=== PATIENT | female | born 1970 | race American Indian/Alaskan Native ===

== ENCOUNTER 2017-05-18 23:19 | Emergency (ER) | payer MEDICAID, OTHER ==
[2017-05-18 23:48] VITALS: BMI 23.4
[2017-05-18] MEDS ORDERED: Sodium Chloride 0.9% 1,000 ML IV STA (23:49)
[2017-05-18 23:58] VITALS: RESP 18; TEMP 98.1
[2017-05-19] LABS: URINE BILIRUBIN SMALL (NEGATIVE); URINE BLOOD LARGE (NEGATIVE); URINE GLUCOSE (UA) NEGATIVE (NEGATIVE); URINE KETONE TRACE mg/dL (NEGATIVE); URINE LEUKOCYTE ESTERASE TRACE Leu/uL (NEGATIVE); URINE PROTEIN 30 mg/dL (<30 mg/dL)
[2017-05-19 00:01] LABS: URINE APPEARANCE CLOUDY (CLEAR); URINE COLOR YELLOW (YELLOW)
--- NOTE | 2017-05-19 00:05 | ED PDOC ---
Arrival/HPI <KenneyTaye - Last Filed: 05/19/17 00:54> - General Historian: Patient <enriqueTaran Tamika - Last Filed: 05/19/17 01:08> - General Chief Complaint: Abdominal Pain Time Seen by Provider: 05/18/17 23:32 - History of Present Illness Narrative History of Present Illness (Text): 05/19/17 00:02 46yo female with no PMhx present with complaint of intermittent epigastric pain x 2weeks. Notes she had similar symptoms few a years and was diagnosed with gallstones. She denies nausea, vomiting, diarrhea, constipation, fever, chills, chest pain, SOB, diaphoresis, any other complaint. (Taran Crawley A) Past Medical History - Provider Review Nursing Documentation Reviewed: Yes - Gastrointestinal Hx Gall Bladder Disease: Yes - Psychiatric Hx Substance Use: Yes <Taran Crawley Tamika - Last Filed: 05/19/17 01:08> Family/Social History - Physician Review Nursing Documentation Reviewed: Yes Family/Social History: Unknown Family HX Smoking Status: Heavy Smoker > 10 Cigarettes Daily Hx Alcohol Use: No Hx Substance Use: Yes Substance used: Snorts Heroin Smokes Cocaine <enriqueTaran A - Last Filed: 05/19/17 01:08> Allergies/Home Meds <Kenney,Taye - Last Filed: 05/19/17 00:54> <Taran Crawley A - Last Filed: 05/19/17 01:08> Allergies/Adverse Reactions: Allergies No Known Allergies Allergy (Verified 05/18/17 23:48) Review of Systems - Physician Review All systems were reviewed & negative as marked: Yes - Review of Systems Constitutional: Normal Eyes: Normal ENT: Normal Respiratory: Normal Cardiovascular: Normal Gastrointestinal: Abdominal Pain. absent: Constipation, Diarrhea, Nausea, Vomiting, Hematochezia, Hematemesis Genitourinary Female: Normal Musculoskeletal: Normal Skin: Normal Neurological: Normal Endocrine: Normal Hemo/Lymphatic: Normal Psychiatric: Normal <Taran Crawley Tamika - Last Filed: 05/19/17 01:08> Physical Exam Vital Signs Reviewed: Yes Temperature: Afebrile Blood Pressure: Normal Pulse: Regular Respiratory Rate: Normal Appearance: Positive for: Well-Appearing, Non-Toxic, Comfortable Pain Distress: None Mental Status: Positive for: Alert and Oriented X 3 - Systems Exam Head: Present: Atraumatic, Normocephalic Pupils: Present: PERRL Extroacular Muscles: Present: EOMI Conjunctiva: Present: Normal Mouth: Present: Moist Mucous Membranes Neck: Present: Normal Range of Motion Respiratory/Chest: Present: Clear to Auscultation, Good Air Exchange. No: Respiratory Distress, Accessory Muscle Use Cardiovascular: Present: Regular Rate and Rhythm, Normal S1, S2. No: Murmurs Abdomen: Present: Tenderness (Epigastric tenderness), Normal Bowel Sounds, Other (soft). No: Distention, Peritoneal Signs, Rebound, Guarding, McBurney's Point Tender, Rovsing's Sign Present Back: Present: Normal Inspection Upper Extremity: Present: Normal Inspection. No: Cyanosis, Edema Lower Extremity: Present: Normal Inspection. No: Edema Neurological: Present: GCS=15, CN II-XII Intact, Speech Normal Skin: Present: Warm, Dry, Normal Color. No: Rashes Psychiatric: Present: Alert, Oriented x 3, Normal Insight, Normal Concentration <Taran Crawley A - Last Filed: 05/19/17 01:08> Vital Signs Temp Pulse Resp BP Pulse Ox 05/18/17 23:53 98.1 F 65 18 165/96 H 100 Medical Decision Making <Taye Moulton - Last Filed: 05/19/17 00:54> <Taran Crawley - Last Filed: 05/19/17 01:08> ED Course and Treatment: 05/19/17 01:03 PT in ED for stated history. She had epigastric pain and expressed history of gallstones. Her pain was controlled in ED with medication and she was hydrated. Large blood was noted in her UA and on further evaluation she stated that she is currently having her monthly period. Lab was unremarkable Gallblader/Kidney US IMPRESSION: Contracted gallbladder with gallstone. Gallbladder wall thickness measured at 4 mm, but gallbladder is contracted. Reported positive sonographic Farley's sign. Acute cholecystitis is a consideration. Nuclear hepatobiliary scan can aid in evaluation. Thank you for allowing us to participate in the care of your patient. Pt have no leukocytosis and no farley's sign on PE, this makes diagnosis of cholecytitis difficult. She will be DC home with Tramadol and pepcid and referred the clinic/surgeon. TRT ED for any new or worsening symptoms. (Diru, Happiness A) - Lab Interpretations Lab Results: 05/19/17 00:10 05/19/17 00:10 Lab Results 05/19/17 00:10: Sodium 140, Potassium 3.8, Chloride 106, Carbon Dioxide 29, Anion Gap 10, BUN 10, Creatinine 0.7, Est GFR ( Amer) > 60, Est GFR (Non- Af Amer) > 60, Random Glucose 91, Calcium 8.9, Total Bilirubin 0.4, AST 27, ALT 19, Alkaline Phosphatase 61, Total Protein 6.9, Albumin 3.5, Globulin 3.4, Albumin/Globulin Ratio 1.0 L, Lipase 71 05/19/17 00:10: PT 11.1, INR 1.02, APTT 29.7 05/19/17 00:10: WBC 9.5, RBC 4.16, Hgb 11.2 L, Hct 34.7 L, MCV 83.4, MCH 26.9, MCHC 32.3, RDW 14.9 H, Plt Count 260, MPV 11.3 H, Gran % 52.5, Lymph % (Auto) 38.0 H, [place] % (Auto) 7.2 H, Eos % (Auto) 1.9, Baso % (Auto) 0.4, Gran # 5.00, Lymph # 3.6 H, [place] # 0.7 H, Eos # 0.2, Baso # 0.04 05/18/17 23:50: Urine Color Yellow, Urine Appearance Cloudy, Urine pH 6.0, Ur Specific [place] >= 1.030, Urine Protein 30 H, Urine Glucose (UA) Negative, Urine Ketones Trace H, Urine Blood Large H, Urine Nitrate Negative, Urine Bilirubin Small H, Urine Urobilinogen 1.0 H, Ur Leukocyte Esterase Trace H, Urine RBC Tntc, Urine WBC 2 - 5, Ur Epithelial Cells 3 - 4, Urine Bacteria Few - RAD Interpretation Radiology Orders: 05/18/17 23:51 GALLBLADDER & RENAL [US] Stat - Medication Orders Current Medication Orders: Discontinued Medications Famotidine (Pepcid) 20 mg IVP STAT STA Stop: 05/18/17 23:50 Last Admin: 05/19/17 00:43 Dose: 20 mg IVP Administration Document 05/19/17 00:43 EQ (Rec: 05/19/17 00:43 EQ [id number]) Charges for Administration # of IVP Administrations 1 Sodium Chloride (Sodium Chloride 0.9%) 1,000 mls @ 1,000 mls/hr IV .Q1H STA Stop: 05/19/17 00:48 Last Admin: 05/19/17 00:43 Dose: 1,000 mls/hr eMAR Start Stop Document 05/19/17 00:43 EQ (Rec: 05/19/17 00:43 EQ [id number]) Intravenous Solution Start Date 05/19/17 Start Time 00:43 Ketorolac Tromethamine (Toradol) 30 mg IVP STAT STA Stop: 05/19/17 00:04 Last Admin: 05/19/17 00:43 Dose: 30 mg MAR Pain Assessment Document 05/19/17 00:43 EQ (Rec: 05/19/17 00:43 EQ [id number]) Pain Reassessment Is this a pain reassessment? No Sleep Is patient sleeping during reassessment? 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 <Taye Moulton - Last Filed: 05/19/17 00:54> Disposition/Present on Arrival <Taye Moulton - Last Filed: 05/19/17 00:54> - Present on Arrival Any Indicators Present on Arrival: No History of DVT/PE: No History of Uncontrolled Diabetes: No Urinary Catheter: No History of Decub. Ulcer: No History Surgical Site Infection Following: None - Disposition Have Diagnosis and Disposition been Completed?: Yes Disposition Time: 01:00 Patient Plan: Discharge <Taran Crawley - Last Filed: 05/19/17 01:08> - Disposition Diagnosis: Cholelithiasis Disposition: HOME/ ROUTINE Condition: STABLE Discharge Instructions (ExitCare): Gallstones (ED) Additional Instructions: Follow up with the lab Return to ED for any new symptoms Prescriptions: Famotidine [Pepcid] 40 mg PO DAILY #20 tab traMADol [Ultram] 50 mg PO TID #12 tab Referrals: Odin Bautista MD [Staff Provider] - Follow up with primary [facility] [place] - Follow up with primary Forms: [place] EXTENDED STAYS (Arabic)
[2017-05-19 00:19] LABS: URINE BACTERIA FEW (NEG); URINE RBC TNTC /hpf (0-2)
[2017-05-19 00:31] LABS: BASO # 0.04 K/mm3 (0.0-2.0); BASO % 0.4 % (0.0-3.0); EOS # 0.2 (0.0-0.7); EOS % 1.9 % (1.5-5.0); GRAN % 52.5 % (50.0-68.0); HEMATOCRIT 34.7 % (36.0-48.0); LYMPH # 3.6 (1.2-3.4); MEAN CELL VOLUME 83.4 fl (80.0-105.0); MEAN CORPUSCULAR HEMOGLOBIN 26.9 pg (25.0-35.0); MEAN CORPUSCULAR HGB CONC 32.3 g/dl (31.0-37.0); MEAN PLATELET VOLUME 11.3 fl (7.0-11.0); MONO # 0.7 (0.1-0.6); MONO % 7.2 % (1.0-6.0); RED CELL DISTRIBUTION WIDTH 14.9 % (11.5-14.5); WHITE BLOOD COUNT 9.5 10^3/ul (4.5-11.0)
[2017-05-19 00:40] LABS: ALKALINE PHOSPHATASE 61 U/L (38-126); ALT/SGPT 19 U/L (7-56); AST/SGOT 27 U/L (14-36); BILIRUBIN,TOTAL 0.4 mg/dL (0.2-1.3); BLOOD UREA NITROGEN 10 mg/dL (7-21); CALCIUM 8.9 mg/dL (8.4-10.5); CARBON DIOXIDE 29 mmol/L (21-33); CHLORIDE 106 mmol/L (98-107); GFR AFRICAN-AMERICAN > 60; GLUCOSE,RANDOM 91 mg/dL (70-110); LIPASE 71 U/L (23-300); POTASSIUM 3.8 mmol/L (3.6-5.0); SODIUM 140 mmol/L (132-148); TOTAL PROTEIN 6.9 g/dL (5.8-8.3)
[2017-05-19 00:41] LABS: INR 1.02 (0.93-1.08); PARTIAL THROMBOPLASTIN TIME 29.7 Seconds (25.1-36.5)
--- NOTE | 2017-05-19 00:58 | US ---
EXAM: US Abdomen Complete CLINICAL HISTORY: 46 years old, female; Pain; Abdominal pain; Other: Ruq; Patient HX: HX of gallstones 2011 TECHNIQUE: Real-time ultrasound of the abdomen (complete) with image documentation. COMPARISON: No relevant prior studies available. FINDINGS: Liver: No acute abnormality as visualized. No mass. No intrahepatic bile duct dilation. Gallbladder: Contracted gallbladder with gallstone and shadowing. Gallbladder wall thickness measured at 4 mm, but gallbladder is contracted. Reported positive sonographic Farley's sign. Common bile duct: No dilation. Pancreas: No acute abnormality as visualized. Kidneys: Right kidney measured 9.6 cm. Left kidney measured at 9.1 cm. 1.2 cm cyst in the upper pole the left kidney. No hydronephrosis. Spleen: No splenomegaly. Aorta/IVC: No acute abnormality as visualized. IMPRESSION: Contracted gallbladder with gallstone. Gallbladder wall thickness measured at 4 mm, but gallbladder is contracted. Reported positive sonographic Farley's sign. Acute cholecystitis is a consideration. Nuclear hepatobiliary scan can aid in evaluation.
[2017-05-19 01:56] VITALS: BP 147/68; PULSE 77; O2SAT 99
--- NOTE | 2017-05-19 14:54 | CARD ---
APPROVED REPORT EKG Measurement Heart [id number] CA [id number] <Conclusion> Normal sinus rhythm Normal ECG
== END 2017-05-19 01:30 | disposition home or self-care (01) ==
LOC: ED 23:19
DX: K80.20 Calculus of gallbladder without cholecystitis without obstruction (principal)
CPT/HCPCS: 76705; 76770; 80053; 81001; 83690; 85025; 85610; 85730; 87086; 93005; 96374; 96375; 99283; J1885; J7040

== ENCOUNTER 2018-07-23 07:23 | Observation (INO) | payer MEDICAID, OTHER ==
[2018-07-23 07:26] VITALS: BMI 24.4
[2018-07-23] MEDS ORDERED: Sodium Chloride 0.9% 1,000 ML IV STA (07:58)
--- NOTE | 2018-07-23 08:12 | ED PDOC ---
Arrival/HPI - General Chief Complaint: Abdominal Pain Time Seen by Provider: 07/23/18 07:25 Historian: Patient - History of Present Illness Narrative History of Present Illness (Text): 07/23/18 08:06 A 47 year old male, whose past medical history includes gallstones, presents to the emergency department complaining of upper abdominal pain for 4-5 days, worse today. Patient reports also experiencing nausea. She states may be gallstone falre-up however is uncertain. Patient denies any vomiting, diarrhea, fever, or any other complaints at this time. Past Medical History - Provider Review Nursing Documentation Reviewed: Yes - Gastrointestinal Hx Gall Bladder Disease: Yes - Psychiatric Hx Substance Use: Yes - Surgical History Hx Section: Yes - Anesthesia Hx Anesthesia: Yes Hx Anesthesia Reactions: No Hx Malignant Hyperthermia: No Family/Social History - Physician Review Nursing Documentation Reviewed: Yes Family/Social History: No Known Family HX Smoking Status: Heavy Smoker > 10 Cigarettes Daily Hx Alcohol Use: No Hx Substance Use: Yes Substance used: Snorts Heroin Smokes Cocaine Allergies/Home Meds Allergies/Adverse Reactions: Allergies No Known Allergies Allergy (Verified 07/23/18 11:44) Home Medications: Home Meds Medication Instructions Recorded Confirmed No Known Home Med 07/23/18 07/23/18 Review of Systems - Physician Review All systems were reviewed & negative as marked: Yes - Review of Systems Constitutional: absent: Fevers, Night Sweats Respiratory: absent: SOB Cardiovascular: absent: Chest Pain Gastrointestinal: Abdominal Pain, Nausea. absent: Diarrhea, Vomiting Neurological: absent: Headache, Dizziness Physical Exam Vital Signs Reviewed: Yes Vital Signs Temp Pulse Resp BP Pulse Ox 07/23/18 07:27 98 F 67 18 145/88 97 Temperature: Afebrile Blood Pressure: Normal Pulse: Regular Respiratory Rate: Normal Appearance: Positive for: Well-Appearing, Non-Toxic, Comfortable Pain Distress: None Mental Status: Positive for: Alert and Oriented X 3 - Systems Exam Head: Present: Atraumatic, Normocephalic Pupils: Present: PERRL Extroacular Muscles: Present: EOMI Conjunctiva: Present: Normal Mouth: Present: Moist Mucous Membranes Neck: Present: Normal Range of Motion Respiratory/Chest: Present: Clear to Auscultation, Good Air Exchange. No: Respiratory Distress, Accessory Muscle Use Cardiovascular: Present: Regular Rate and Rhythm, Normal S1, S2. No: Murmurs Abdomen: Present: Tenderness (RUQ and epigastric tenderness), Guarding. No: Distention, Peritoneal Signs, McBurney's Point Tender, Other (no Farley's sign) Back: Present: Normal Inspection Upper Extremity: Present: Normal Inspection. No: Cyanosis, Edema Lower Extremity: Present: Normal Inspection. No: Edema Neurological: Present: GCS=15, CN II-XII Intact, Speech Normal Skin: Present: Warm, Dry, Normal Color. No: Rashes Psychiatric: Present: Alert, Oriented x 3, Normal Insight, Normal Concentration Medical Decision Making ED Course and Treatment: 07/23/18 08:07 Impression: 47 year old female with abdominal pain. Differential Diagnosis included but are not limited to: Billiary Colic vs. Colitis vs. Gastritis. Plan: -- Abdominal Ultrasound -- Labs -- Pepcid -- Zofran -- Toradol -- IV Fluids -- Reassess and disposition Progress Notes: 07/23/2018 10:25 Abdominal Ultrasound IMPRESSION: Interval progressive common bile duct and intrahepatic bile duct dilatation compatible with interval obstruction.. The prior contracted gallbladder appearance with gallstones is renoted. Also renoted is a sonographic positive Farley sign. An acute on chronic cholecystitis as well as any acute cholangitis needed be considered. Dictator: Lillian Hernandez MD 07/23/18 10:[address] Hall, surgeon, who requests to have GI specialist paged and his surgical technologist. 07/23/18 10:50 president/gm production & live experiences currently evaluating patient at bedside. Case discussed with Dr. Wise, GI fellow covering Dr. Rob, who will come down to see patient for possible ERCP or MRCP. Case discussed with Dr. Gleason who recommended full inpatient admission for consults and tx. Patient's pain is controlled but still having symptoms. - RAD Interpretation Radiology Orders: 07/23/18 07:58 ABDOMEN COMPLETE [US] Stat - Medication Orders Current Medication Orders: Sodium Chloride (Sodium Chloride 0.9%) 1,000 mls @ 1,000 mls/hr IV .Q1H STA Stop: 07/23/18 08:57 Discontinued Medications Famotidine (Pepcid) 20 mg IVP STAT STA Stop: 07/23/18 07:59 Ketorolac Tromethamine (Toradol) 30 mg IVP STAT STA Stop: 07/23/18 07:59 Ondansetron HCl (Zofran Inj) 4 mg IVP STAT STA Stop: 07/23/18 07:59 - Scribe Statement The provider has reviewed the documentation as recorded by the Sybil Rivers Provider Scribe Attestation: All medical record entries made by the Scribursula were at my direction and personally dictated by me. I have reviewed the chart and agree that the record accurately reflects my personal performance of the history, physical exam, m edical decision making, and the department course for this patient. I have also personally directed, reviewed, and agree with the discharge instructions and disposition. Disposition/Present on Arrival - Present on Arrival Any Indicators Present on Arrival: No History of DVT/PE: No History of Uncontrolled Diabetes: No Urinary Catheter: No History of Decub. Ulcer: No History Surgical Site Infection Following: None - Disposition Have Diagnosis and Disposition been Completed?: Yes Diagnosis: Acute and chronic cholecystitis, Common bile duct dilatation Disposition Time: 10:56 Patient Plan: Admission Condition: FAIR
[2018-07-23 08:27] LABS: BASO # 0.05 K/mm3 (0.0-2.0); BASO % 0.6 % (0.0-3.0); EOS # 0.1 (0.0-0.7); EOS % 1.4 % (1.5-5.0); GRAN # 5.42 (1.4-6.5); GRAN % 63.2 % (50.0-68.0); HEMOGLOBIN 12.2 g/dL (12.0-16.0); LYMPH # 2.6 (1.2-3.4); LYMPH % 29.7 % (22.0-35.0); MEAN CELL VOLUME 82.4 fl (80.0-105.0); MEAN CORPUSCULAR HEMOGLOBIN 26.5 pg (25.0-35.0); MEAN CORPUSCULAR HGB CONC 32.1 g/dl (31.0-37.0); MEAN PLATELET VOLUME 10.6 fl (7.0-11.0); MONO # 0.4 (0.1-0.6); MONO % 5.1 % (1.0-6.0); RBC 4.61 10^6/uL (3.5-6.1); RED CELL DISTRIBUTION WIDTH 17.3 % (11.5-14.5); WHITE BLOOD COUNT 8.6 10^3/uL (4.5-11.0)
[2018-07-23 08:49] LABS: ALB/GLOB RATIO 1.2 (1.1-1.8); ALBUMIN 4.1 g/dL (3.0-4.8); ALT/SGPT 19 U/L (7-56); AST/SGOT 25 U/L (14-36); BLOOD UREA NITROGEN 12 mg/dL (7-21); CALCIUM 9.6 mg/dL (8.4-10.5); GFR NON-AFRICAN AMERICAN > 60; LIPASE 86 U/L (23-300)
[2018-07-23 09:09] LABS: INR 1.04; PARTIAL THROMBOPLASTIN TIME 31.3 Seconds (26.9-38.3); PROTHROMBIN TIME 11.7 SECONDS (9.4-12.5)
--- NOTE | 2018-07-23 10:02 | US ---
Date of service: 07/23/2018 HISTORY: RUQ abd pain r/o cholecystitis COMPARISON: Renal gallbladder ultrasound 05/19/2017-report TECHNIQUE: Sonographic evaluation of the abdomen. FINDINGS: LIVER: Measures 15.6 cm. Normal echogenicity of the liver parenchyma. No mass. No intrahepatic bile duct dilatation. GALLBLADDER: Contracted gallbladder with stones 1 large stone approximately 1.1 cm in size. Positive sonographic Farley sign again reported. Stones previously reported on the after mentioned prior 2017 report this some gallbladder wall edema is possible-however the contracted state limits its optimal evaluation the wall as noted in this contracted state is 4 mm in thickness. COMMON BILE DUCT: Measures 8.2 mm. Common bile duct and intrahepatic bile duct dilatation suggested. The common bile duct and the intrahepatic bile duct have increased in caliber since the 2017 study. PANCREAS: Some hyper echogenicities along the anterior aspect of the pancreatic head are perceived. This may be extrinsic to the pancreatic head-possibly within the gastric antrum. No definitive pancreatic mass associated with any pancreatic ductal dilatation noted.. RIGHT KIDNEY: Measures 8.8 x 4.4 x 5.8cm. Normal echogenicity. No calculus, mass, or hydronephrosis. LEFT KIDNEY: Measures 9.4 x 4.4 x 6.0cm. Normal echogenicity. No calculus, solid appear mass, or hydronephrosis. A upper pole left renal cyst measuring 1.7 x 1.3 x 1.6 cm in size is noted.-this is a similar to 2017 SPLEEN: Normal in size and contour. No mass. AORTA: No aneurysmal dilatation. IVC: Unremarkable. OTHER FINDINGS: None. IMPRESSION: Interval progressive common bile duct and intrahepatic bile duct dilatation compatible with interval obstruction.. The prior contracted gallbladder appearance with gallstones is renoted. Also renoted is a sonographic positive Farley sign. An acute on chronic cholecystitis as well as any acute cholangitis needed be considered. Other findings as above. Comments: Study marked for PA review .
--- NOTE | 2018-07-23 11:41 | CP.PCM.CON ---
History of Present Illness - History of Present Illness History of Present Illness: Surgery consult note for Dr. WATTS Reason for consult: abdominal pain 47 y/o female with PMH of cholelithiasis presents to the ED with 5 days h/o RUQ/epigastric pain, sharp, intermittent, worst rated 9/10, radiates to the back, exacerbated by meals, no alleviating factors. Pain is associated with nausea. She denied vomiting, diarrhea, hematemesis, hematochezia, melena, change of bowel movement, fever, chills. Patient reports cholelithiasis diagnosis since 2016 with few ED visits since then but no hospital admissions related to her illness. Patient was seen by a surgeon in 03/2018 for elective lap mary, was sent for pre-op cardiac evaluation given her history of valvular heart disease and was cleared for surgery but she did not go for it. Patient denied chest pain, palpitation, SOB, YOUNGER, orthopnea, PND, exercise intolerance, headache, dizziness. 12 points ROS reviewed with pertinent positives as above PMH: cholelithiasis, valvular heart disease PSH: x3 Meds: none All: NDKA SH: heavy smoker, uses cocaine and herion, denied ETOH use FH: non-contributory Past Patient History - Past Social History Smoking Status: Heavy Smoker > 10 Cigarettes Daily - GASTROINTESTINAL Hx Gall Bladder Disease: Yes - PSYCHIATRIC Hx Substance Use: Yes - SURGICAL HISTORY Hx Section: Yes - ANESTHESIA Hx Anesthesia: Yes Hx Anesthesia Reactions: No Hx Malignant Hyperthermia: No Meds Allergies/Adverse Reactions: Allergies Allergy/AdvReac Type Severity Reaction Status Date / Time No Known Allergies Allergy Verified 07/23/18 11:44 - Medications Medications: Current Medications Ketorolac Tromethamine (Toradol) 15 mg IVP Q8H PRN PRN Reason: Pain, moderate (4-7) Ondansetron HCl (Zofran Inj) 4 mg IVP Q8H PRN PRN Reason: Nausea/Vomiting Pantoprazole Sodium (Protonix Inj) 40 mg IVP Q12 VERONA Physical Exam - Constitutional Appears: Well, No Acute Distress - Head Exam Head Exam: ATRAUMATIC, NORMAL INSPECTION, NORMOCEPHALIC - Eye Exam Eye Exam: EOMI, Normal appearance, PERRL Pupil Exam: NORMAL ACCOMODATION, PERRL - ENT Exam ENT Exam: Mucous Membranes Moist, Normal Exam - Neck Exam Neck exam: Positive for: Normal Inspection - Respiratory Exam Respiratory Exam: Clear to Auscultation Bilateral, NORMAL BREATHING PATTERN. absent: Rales, Wheezes - Cardiovascular Exam Cardiovascular Exam: REGULAR RHYTHM, +S1, +S2. absent: Gallop, JVD, Rubs - GI/Abdominal Exam GI & Abdominal Exam: Normal Bowel Sounds, Soft, Tenderness (TTP in epigastric/RUQ area). absent: Guarding, Mass, Rebound - Extremities Exam Extremities exam: Positive for: normal capillary refill, normal inspection, pedal pulses present - Back Exam Back exam: NORMAL INSPECTION - Neurological Exam Neurological exam: Alert, Oriented x3 - Psychiatric Exam Psychiatric exam: Normal Affect, Normal Mood - Skin Skin Exam: Dry, Intact, Normal Color, Warm Results - Vital Signs Recent Vital Signs: Last Vital Signs Temp 98 F 07/23/18 07:27 Pulse 60 07/23/18 10:23 Resp 18 07/23/18 10:23 BP 107/79 07/23/18 10:23 Pulse Ox 98 07/23/18 10:23 - Labs Result Diagrams: 07/23/18 07:58 07/23/18 08:25 Labs: Laboratory Results - last 24 hr 07/23/18 07/23/18 07/23/18 07:58 08:25 08:30 WBC 8.6 RBC 4.61 Hgb 12.2 Hct 38.0 MCV 82.4 MCH 26.5 MCHC 32.1 RDW 17.3 H Plt Count 309 MPV 10.6 Gran % 63.2 Lymph % (Auto) 29.7 [place] % (Auto) 5.1 Eos % (Auto) 1.4 L Baso % (Auto) 0.6 Gran # 5.42 Lymph # (Auto) 2.6 [place] # (Auto) 0.4 Eos # (Auto) 0.1 Baso # (Auto) 0.05 PT 11.7 INR 1.04 APTT 31.3 Sodium 139 Potassium 4.4 Chloride 105 Carbon Dioxide 28 Anion Gap 11 BUN 12 Creatinine 0.7 Est GFR ( Amer) > 60 Est GFR (Non-Af Amer) > 60 Random Glucose 109 Calcium 9.6 Magnesium 1.9 Total Bilirubin 0.4 AST 25 ALT 19 Alkaline Phosphatase 66 Total Protein 7.5 Albumin 4.1 Globulin 3.4 Albumin/Globulin Ratio 1.2 Lipase 86 Assessment & Plan - Assessment and Plan (Free Text) Assessment: 47 y/o female with RUQ/epigastric pain x5 days Patient afebrile, hemodynamically stable, normal labs with LFT/ALP/lipase wnl cholelithiasis valvular heart disease Plan: -abd U/S: cholelithiasis, CBD 8.2mm, GBW edema, + maciel's sign -MRCP ordered -pain control, antiemetic prn -continue IVF LR@100cc/hr -clear liquid diet -cardiology consulted for h/o valvular heart disease, Dr Harris -further recs per attending surgeon Dr. Rafael Vinson, DO
--- NOTE | 2018-07-23 11:58 | CP.PCM.CON ---
<Clyde Elliott - Last Filed: 07/23/18 13:07> History of Present Illness - History of Present Illness History of Present Illness: PGY-4 GI Fellow Consult Note Pt is a 47 yo BF with h/o cholelithiasis, Valvular Heart disease presenting with complaint of abd pain. She reports some sharp, epigastric discomfort with some radiation to her back. States that symptoms are worse with PO intake with some associated nausea. She states this pain feels like her gallstone pain. She had been referred for outpatient cholecystectomy but never followed up. She denied any F/C, Vomiting, diarrhea, melena nor hematochezia. She states bowel movements are "normal" and has never had EGD/CSPY before. 12 point ROS negative other than stated above MHx: Cholelithiasis, Valvular heart disease SurgHx: x3 Meds: None FamHx: Denied GI/CRC SocHx: heavy smoker, uses cocaine and heroin, denied ETOH use All: NDKA Past Patient History - Past Social History Smoking Status: Heavy Smoker > 10 Cigarettes Daily - GASTROINTESTINAL Hx Gall Bladder Disease: Yes - PSYCHIATRIC Hx Substance Use: Yes - SURGICAL HISTORY Hx Section: Yes - ANESTHESIA Hx Anesthesia: Yes Hx Anesthesia Reactions: No Hx Malignant Hyperthermia: No Meds Allergies/Adverse Reactions: Allergies Allergy/AdvReac Type Severity Reaction Status Date / Time No Known Allergies Allergy Verified 07/23/18 11:44 - Medications Medications: Current Medications Ketorolac Tromethamine (Toradol) 15 mg IVP Q8H PRN PRN Reason: Pain, moderate (4-7) Ondansetron HCl (Zofran Inj) 4 mg IVP Q8H PRN PRN Reason: Nausea/Vomiting Physical Exam - Constitutional Appears: Well, No Acute Distress - Head Exam Head Exam: ATRAUMATIC, NORMAL INSPECTION - Eye Exam Eye Exam: EOMI. absent: Scleral icterus - ENT Exam ENT Exam: Mucous Membranes Moist. absent: Mucous Membranes Dry - Respiratory Exam Respiratory Exam: Clear to Auscultation Bilateral, NORMAL BREATHING PATTERN. absent: Accessory Muscle Use, Respiratory Distress - Cardiovascular Exam Cardiovascular Exam: REGULAR RHYTHM, RRR - GI/Abdominal Exam GI & Abdominal Exam: Normal Bowel Sounds, Soft, Tenderness (ttp in epigastrum w/o guarding). absent: Bruit, Diminished Bowel Sounds, Distended, Firm, Guarding, Hernia, Mass, Organomegaly, Pulsatile Mass, Rebound, Rigid - Rectal Exam Rectal Exam: Deferred - Extremities Exam Extremities exam: Positive for: normal inspection. Negative for: pedal edema - Neurological Exam Additional comments: tired, awakes to light tactile stimulation - Skin Skin Exam: Dry, Warm Results - Vital Signs Recent Vital Signs: Last Vital Signs Temp 98 F 07/23/18 07:27 Pulse 60 07/23/18 10:23 Resp 18 07/23/18 10:23 BP 107/79 07/23/18 10:23 Pulse Ox 98 07/23/18 10:23 - Labs Result Diagrams: 07/23/18 07:58 07/23/18 08:25 Labs: Laboratory Results - last 24 hr 07/23/18 07/23/18 07/23/18 07:58 08:25 08:30 WBC 8.6 RBC 4.61 Hgb 12.2 Hct 38.0 MCV 82.4 MCH 26.5 MCHC 32.1 RDW 17.3 H Plt Count 309 MPV 10.6 Gran % 63.2 Lymph % (Auto) 29.7 [place] % (Auto) 5.1 Eos % (Auto) 1.4 L Baso % (Auto) 0.6 Gran # 5.42 Lymph # (Auto) 2.6 [place] # (Auto) 0.4 Eos # (Auto) 0.1 Baso # (Auto) 0.05 PT 11.7 INR 1.04 APTT 31.3 Sodium 139 Potassium 4.4 Chloride 105 Carbon Dioxide 28 Anion Gap 11 BUN 12 Creatinine 0.7 Est GFR ( Amer) > 60 Est GFR (Non-Af Amer) > 60 Random Glucose 109 Calcium 9.6 Magnesium 1.9 Total Bilirubin 0.4 AST 25 ALT 19 Alkaline Phosphatase 66 Total Protein 7.5 Albumin 4.1 Globulin 3.4 Albumin/Globulin Ratio 1.2 Lipase 86 Assessment & Plan - Assessment and Plan (Free Text) Assessment: 47 yo BF with h/o cholelithiasis, valvular heard disease presenting with abd pain. # Abd Pain: Related to biliary colic with known cholelithiasis. CBD dilated to 8.2mm with extra hep dilation concerning for obstruction but no stone seen. Liver tests within normal limits. No fever nor increased WBC. Plan: - Agree with MRCP - Consider ERCP pending course - Gen Surg Consulted - Supp care Pt discussed with Dr. Rob; please see attestation for further recs/changes. <Chilo Rob Y - Last Filed: 07/23/18 16:19> Meds - Medications Medications: Current Medications Famotidine (Pepcid) 40 mg PO HS VERONA Sodium Chloride (Sodium Chloride 0.9%) 1,000 mls @ 100 mls/hr IV .Q10H VERONA Metronidazole (Flagyl) 500 mg in 100 mls @ 100 mls/hr IVPB Q8 VERONA; Protocol Ceftriaxone Sodium (Rocephin 1 Gram Ivpb) 1 gm in 100 mls @ 100 mls/hr IVPB DAILY VERONA; Protocol Ketorolac Tromethamine (Toradol) 15 mg IVP Q8H PRN PRN Reason: Pain, moderate (4-7) Ondansetron HCl (Zofran Inj) 4 mg IVP Q8H PRN PRN Reason: Nausea/Vomiting Results - Vital Signs Recent Vital Signs: Last Vital Signs Temp 98 F 07/23/18 07:27 Pulse 60 07/23/18 10:23 Resp 18 07/23/18 10:23 BP 107/79 07/23/18 10:23 Pulse Ox 98 07/23/18 10:23 - Labs Result Diagrams: 07/23/18 07:58 07/23/18 08:25 Labs: Laboratory Results - last 24 hr 07/23/18 07/23/18 07/23/18 07:58 08:25 08:30 WBC 8.6 RBC 4.61 Hgb 12.2 Hct 38.0 MCV 82.4 MCH 26.5 MCHC 32.1 RDW 17.3 H Plt Count 309 MPV 10.6 Gran % 63.2 Lymph % (Auto) 29.7 [place] % (Auto) 5.1 Eos % (Auto) 1.4 L Baso % (Auto) 0.6 Gran # 5.42 Lymph # (Auto) 2.6 [place] # (Auto) 0.4 Eos # (Auto) 0.1 Baso # (Auto) 0.05 PT 11.7 INR 1.04 APTT 31.3 Sodium 139 Potassium 4.4 Chloride 105 Carbon Dioxide 28 Anion Gap 11 BUN 12 Creatinine 0.7 Est GFR ( Amer) > 60 Est GFR (Non-Af Amer) > 60 Random Glucose 109 Calcium 9.6 Magnesium 1.9 Total Bilirubin 0.4 AST 25 ALT 19 Alkaline Phosphatase 66 Total Protein 7.5 Albumin 4.1 Globulin 3.4 Albumin/Globulin Ratio 1.2 Lipase 86 Attending/Attestation - Attestation I have personally seen and examined this patient.: Yes I have fully participated in the care of the patient.: Yes I have reviewed all pertinent clinical information: Yes Notes (Text): 07/23/18 16:15 I have seen and examined patient with GI fellow. Agree with above documentation with the following additions. In brief, this is a 47 year old female with history of cholelithiasis, who presents to hospital with complaint of progressive abdominal pain. She reports sharp, 9/10 intensity epigastric pain radiating to her back which is worse after meal consumption. She was previously evaluated as outpatient with similar complaints and was scheduled for cholecystectomy which was apparently not performed. She otherwise denies nausea, vomiting, fever/chills, weight loss, rectal bleeding, jaundice, pruritis, or change in bowel habits. No prior endoscopic evaluation. Abdominal pain Cholelithiasis MRCP and US imaging reviewed by me showing normal caliber CBD without presence of choledocholithiasis. MRCP report documents removed gallbladder, will need to discuss with radiology. - Liquid diet as tolerated - Continue with antibiotic therapy as per surgical team - Follow up surgical recommendations regarding potential cholecystectomy - LFTs normal, continue to monitor - No planned GI intervention at this time, will sign off case. Please reconsult as necessary, thank you.
--- NOTE | 2018-07-23 12:43 | CP.PCM.HP ---
<BarronMaris - Last Filed: 07/23/18 22:02> History of Present Illness - History of Present Illness History of Present Illness: Maris Mart, PGY-1 Medicine H&P Note for Dr. Thomas: CC: RUQ abd pain Pt is a 47 yo F with pmhx of cholelithiasis who presents to the ED for RUQ abd pain for the past 4-5 days. Pt states that she noticed RUQ pain that worsened with food which started 4-5 days ago. She reports that the pain is rated at a 10/10 with occasional radiation to R shoulder. She reports that anytime she eats greasy food the RUQ pain worsens acutely. She reports having similar pain in the past, and was diagnosed with cholelithiasis in 2011. Pt was sent to Dr. Salazar for cardiac clearance and stress test was (-), echo showed EF of 68%. She is currently denies fevers, chills, chest pain, palpitations, yellowing of skin, itching, SOB, cough, vomiting, dysuria or hematuria. Pt does admit to RUQ abd pain and nausea. Pmhx: Cholelithiasis Pshx: x 3 Meds: Denies All: NKDA Social: 1/2ppd smoker for greater than 10 years, denies etoh use or recent illicit drug use, has hx of cocaine and heroine abuse Fam: Mom: Gastric ca @ 60 PMD: Dr. Yuridia Cobos Cards: Dr. Salazar Pharm: [facility] in [place] Present on Admission - Present on Admission Any Indicators Present on Admission: No Review of Systems - Review of Systems Review of Systems: 12 point ROS was reviewed and negative except for noted in HPI above. Past Patient History - Past Social History Smoking Status: Heavy Smoker > 10 Cigarettes Daily - GASTROINTESTINAL Hx Gall Bladder Disease: Yes - PSYCHIATRIC Hx Substance Use: Yes - SURGICAL HISTORY Hx Section: Yes - ANESTHESIA Hx Anesthesia: Yes Hx Anesthesia Reactions: No Hx Malignant Hyperthermia: No Meds Home Medications: Home Medication List Medication Instructions Recorded Confirmed Type Docusate [Colace] 100 mg PO DAILY PRN 30 Days #30 cap 07/24/18 Rx Ferrous Sulfate [Feosol] 324 mg PO TID 30 Days #90 ect 07/24/18 Rx RX: Famotidine [Pepcid] 40 mg PO HS 14 Days #14 tab 07/24/18 Rx Allergies/Adverse Reactions: Allergies Allergy/AdvReac Type Severity Reaction Status Date / Time No Known Allergies Allergy Verified 07/23/18 11:44 Physical Exam - Constitutional Appears: Non-toxic, No Acute Distress, Other (somnolent) - Head Exam Head Exam: ATRAUMATIC, NORMAL INSPECTION, NORMOCEPHALIC - Eye Exam Eye Exam: EOMI, Normal appearance, PERRL - Respiratory Exam Respiratory Exam: Clear to Auscultation Bilateral, NORMAL BREATHING PATTERN. absent: Accessory Muscle Use, Decreased Breath Sounds, Rhonchi, Wheezes, Respiratory Distress, Stridor - Cardiovascular Exam Cardiovascular Exam: RRR, +S1, +S2. absent: Gallop, Rubs - GI/Abdominal Exam GI & Abdominal Exam: Normal Bowel Sounds, Soft, Tenderness (present in RUQ, murphys sign negative (pt recently given pain medication may mask positive murphys sign)). absent: Distended, Firm, Guarding, Rebound - Extremities Exam Extremities exam: Positive for: normal capillary refill, normal inspection, pedal pulses present - Back Exam Back exam: NORMAL INSPECTION. absent: CVA tenderness (L), CVA tenderness (R) - Neurological Exam Neurological exam: Oriented x3 Additional comments: pt was somnolent 2/2 pain meds - Psychiatric Exam Additional comments: somnolent - Skin Skin Exam: Dry, Normal Color, Warm Results - Vital Signs Recent Vital Signs: Last Vital Signs Temp 98 F 07/23/18 07:27 Pulse 60 07/23/18 10:23 Resp 18 07/23/18 10:23 BP 107/79 07/23/18 10:23 Pulse Ox 98 07/23/18 10:23 - Labs Result Diagrams: 07/23/18 07:58 07/23/18 08:25 Labs: Laboratory Results - last 24 hr 07/23/18 07/23/18 07/23/18 07:58 08:25 08:30 WBC 8.6 RBC 4.61 Hgb 12.2 Hct 38.0 MCV 82.4 MCH 26.5 MCHC 32.1 RDW 17.3 H Plt Count 309 MPV 10.6 Gran % 63.2 Lymph % (Auto) 29.7 [place] % (Auto) 5.1 Eos % (Auto) 1.4 L Baso % (Auto) 0.6 Gran # 5.42 Lymph # (Auto) 2.6 [place] # (Auto) 0.4 Eos # (Auto) 0.1 Baso # (Auto) 0.05 PT 11.7 INR 1.04 APTT 31.3 Sodium 139 Potassium 4.4 Chloride 105 Carbon Dioxide 28 Anion Gap 11 BUN 12 Creatinine 0.7 Est GFR ( Amer) > 60 Est GFR (Non-Af Amer) > 60 Random Glucose 109 Calcium 9.6 Magnesium 1.9 Total Bilirubin 0.4 AST 25 ALT 19 Alkaline Phosphatase 66 Total Protein 7.5 Albumin 4.1 Globulin 3.4 Albumin/Globulin Ratio 1.2 Lipase 86 Assessment & Plan - Assessment and Plan (Free Text) Assessment: Pt is a 47 yo F with pmhx of septal infarct and cholelithiasis who presents to the ED for RUQ abd pain for the past 4-5 days. Abd U/s: progressive CBD and intrahepatic bile duct dilatation ocmpatible with interbal obstruction. Prior contracted gallbladder with gallstones is renoted. Sonographic (+) [place] sign. Plan: 1) Cholelithiasis: - Abd U/S: progressive CBD and intrahepatic bile duct dilatation ocmpatible with interbal obstruction. Prior contracted gallbladder with gallstones is renoted. Sonographic (+) [place] sign. - Liquid diet - MRCP - Flagyl and Rocephin IV - Toradol IVP for pain management - Zofran PRN for nausea - Surg consult - Cards consult - Echo done 04/17 noted EF of 67% - Awaiting fax from office - Stress test done 05/02/18 and was negative - Awaiting fax from office. PPx: - GI: Pepcid - DVT: SCDs Case seen and discussed with Dr. Martha Mart, PGY-1 <Konstantin Thomas - Last Filed: 07/25/18 08:03> Results - Vital Signs Recent Vital Signs: Last Vital Signs Temp 98 F 07/24/18 08:18 Pulse 61 07/24/18 08:18 Resp 20 07/24/18 08:18 BP 113/73 07/24/18 08:18 Pulse Ox 97 07/24/18 08:18 - Labs Result Diagrams: 07/24/18 06:05 07/24/18 06:05 Labs: Laboratory Results - last 24 hr 07/24/18 07/24/18 07/24/18 08:30 08:30 08:30 Retic Count 0.93 Iron 24 L TIBC 337 % Saturation 7 L Transferrin 286.34 Ferritin 07/24/18 08:30 Retic Count Iron TIBC % Saturation Transferrin Ferritin 6.8 Attending/Attestation - Attestation I have personally seen and examined this patient.: Yes I have fully participated in the care of the patient.: Yes I have reviewed all pertinent clinical information: Yes Notes (Text): 07/25/18 07:58 Patient was seen and examined with medical laboratory manager. 47 yo F with pmhx of cholelithiasis and drug abuse is admitted with epigatric and right upper quadrant pain. USG finding were concerning for cholycystitis but MRCP is negative for cholycystitis, has gall stone,CBD side was normal on MRCP. LFT are normal.Patient has been evaluated by surgery and is scheduled for cholycystectomy tomorrow. Patient had abnormal EKG which prompted out patient Echo that showed normal systolic function and stress test was negative for ischemia.She does not need any other pre operative work up . Management plan was discussed in detail with patient. Education was provided.
--- NOTE | 2018-07-23 14:56 | MRI ---
Date of service: 07/23/2018 PROCEDURE: Magnetic Resonance Cholangiopancreatography HISTORY: Dilated common duct COMPARISON: None available. TECHNIQUE: Multiplanar, multisequence MR images of the abdomen were obtained, including heavily T2 weighted MRCP images of the biliary system. Rotating maximum intensity projection images of the biliary system were generated. FINDINGS: MRCP: The common bile duct is of a normal caliber. The distal common duct measures 6 mm. No evidence of choledocholithiasis. No intrahepatic biliary ductal dilatation. LIVER: Unremarkable. GALLBLADDER: Removed SPLEEN: Unremarkable. PANCREAS: Unremarkable. ADRENALS: Unremarkable. KIDNEYS: Unremarkable. AORTA: No aneurysm. ASCITES: None. OTHER FINDINGS: None. IMPRESSION: Negative study
--- NOTE | 2018-07-23 16:47 | CARD ---
APPROVED REPORT Date of service: 07/23/2018 EXAM: Two-dimensional and M-mode echocardiogram with Doppler and color Doppler. INDICATION Pre-Op 2D DIMENSIONS Left Atrium (2D)4.0 (1.6-4.0cm)IVSd0.8 (0.7-1.1cm) LVDd4.1 (3.9-5.9cm)PWd1.1 (0.7-1.1cm) LVDs2.6 (2.5-4.0cm)FS (%) 36.6 % LVEF (%)66.9 (>50%) M-Mode DIMENSIONS Aortic Root2.50 (2.2-3.7cm)Aortic Cusp Exc.1.70 (1.5-2.0cm) Aortic Valve AoV Peak Fhqatsnm451.0cm/sAoV VTI39.5cmAO Peak GR.13mmHg AO Mean GR.7mmHgAI P 1/2 Bdbs459pi Mitral Valve MV E Rropbxcu19.8cm/sMV A Ncpkxikr15.6cm/sE/A ratio1.3 TDI Lateral E' Peak V10.70cm/sMedial E' Peak V9.26cm/sE/Lateral E'8.5 E/Medial E'9.8 Pulmonary Valve PV Peak Cruhmsve05.4cm/sPV Peak Grad.3mmHg Tricuspid Valve TR Peak Unybhdqb476pu/sRAP [id number] Peak Gr.19mmHg [id number] LEFT VENTRICLE The left ventricle is normal size. There is normal left ventricular wall thickness. The left ventricular function is normal. The left ventricular ejection fraction is within the normal range. There is normal LV segmental wall motion. The left ventricular diastolic function is normal. RIGHT VENTRICLE The right ventricle is normal size. There is normal right ventricular wall thickness. The right ventricular systolic function is normal. ATRIA The left atrium is borderline dilated. The right atrium is borderline dilated. AORTIC VALVE The aortic valve is mildly thickened. There is mild aortic regurgitation. There is no aortic valvular stenosis. MITRAL VALVE The mitral valve is mildly thickened. There is no mitral valve regurgitation noted. There is no mitral valve stenosis. TRICUSPID VALVE The tricuspid valve is normal in structure. There is mild tricuspid regurgitation. PULMONIC VALVE There is trace pulmonic valvular regurgitation. GREAT VESSELS The aortic root is normal in size. The IVC is normal in size and collapses >50% with inspiration. PERICARDIAL EFFUSION There is no pericardial effusion. <Conclusion> The left ventricle is normal size. There is normal left ventricular wall thickness. The left ventricular function is normal. The left ventricular ejection fraction is within the normal range. There is normal LV segmental wall motion. The left ventricular diastolic function is normal. There is mild aortic regurgitation. There is mild tricuspid regurgitation.
[2018-07-23] MEDS: Sodium Chloride 0.9% 1,000 ML IV SCH (17:04)
[2018-07-23] MEDS: metroNIDAZOLE IV 500 mg/100 ml 500 MG/100 ML BAG IVPB SCH ×2 (17:04→21:23)
[2018-07-23] MEDS: cefTRIAXone 1 gm 1 GM/100 ML BAG IVPB SCH (17:04)
[2018-07-23] MEDS ORDERED: Pneumococcal 23-Valent Vaccine IM ONE (17:41)
[2018-07-23] MEDS ORDERED: Influenza Vaccine 60 mcg/0.5 mL SYR (4YR UP) IM ONE (17:41)
[2018-07-23 18:02] VITALS: RESP 20
--- NOTE | 2018-07-23 23:15 | CON ---
DATE OF CONSULTATION: 07/23/2018 REASON FOR CONSULTATION: Preoperative evaluation. HISTORY OF PRESENT ILLNESS: The patient is a 47-year-old -[place] female who has no known prior cardiac history. She presented because of excruciating abdominal pain. The patient stated that she was diagnosed with gallstones in 05/2018 at [facility] and was advised surgery, but because of some other family issues, the patient declined surgery and went home. The patient presents because of excruciating abdominal pain and nausea. The patient denies any history of sudden chest pain. SOCIAL HISTORY: The patient is a smoker. She is nondrinker. MEDICATIONS: Flagyl 500 mg intravenously every 8 hours, Rocephin 1 g intravenously daily, Toradol 50 mg IV push every 8 hours p.r.n. for pain, Zofran 4 mg intravenously every 8 hours. REVIEW OF SYSTEMS: No fever or chills. No diarrhea and no vomiting so far. PHYSICAL EXAMINATION: GENERAL: The patient is a middle-aged female who does not appear to be in any distress. VITAL SIGNS: Blood pressure 107/79, heart rate 60, temperature 98, respirations 18. HEENT: Normocephalic. CHEST: Clear. HEART: Sounds regular. EXTREMITIES: No edema. LABORATORY DATA: Today's hemoglobin, hematocrit, white count and platelet count are within normal limits. The SMA-7 is entirely within normal limits. Lipase is within normal limits. PT/PTT/INR is within normal limits. EKG revealed normal sinus rhythm at rate of 66. Abdominal ultrasound revealed interval progressive common bile duct and intrahepatic bile duct dilatation compatible with interval obstruction. The prior contracted gallbladder appearance with gallstones is re-noted. Positive Farley sign. Acute on chronic cholecystitis as well as an acute cholangitis need to be considered. ASSESSMENT: Acute cholecystitis and possible acute cholangitis. RECOMMENDATIONS: Continue current IV Rocephin and IV Flagyl. The patient was scheduled for an echocardiogram; however, that should not postpone the surgical decision and the patient can undergo her surgery with acceptable cardiac risk with postoperative telemetry monitoring. Jorgito Alamo MD
--- NOTE | 2018-07-24 00:20 | CARD ---
APPROVED REPORT Date of service: 07/23/2018 EKG Measurement Heart [id number] <Conclusion> Normal sinus rhythm Normal ECG
[2018-07-24 00:42] LABS: URINE APPEARANCE CLEAR (CLEAR); URINE BILIRUBIN NEGATIVE (NEGATIVE); URINE BLOOD NEGATIVE (NEGATIVE); URINE COLOR YELLOW (YELLOW); URINE GLUCOSE (UA) NEGATIVE (NEGATIVE); URINE LEUKOCYTE ESTERASE NEGATIVE Leu/uL (NEGATIVE); URINE PROTEIN NEGATIVE mg/dL (<30 mg/dL); URINE UROBILINOGEN 0.2 E.U./dL (<1 E.U./dL)
[2018-07-24 01:02] LABS: BARBITURATES, UR NEGATIVE (NEGATIVE); BENZODIAZEPINES, UR POSITIVE (NEGATIVE); OPIATES, UR POSITIVE (NEGATIVE); PHENCYCLIDINE, UR NEGATIVE (NEGATIVE)
[2018-07-24] MEDS: metroNIDAZOLE IV 500 mg/100 ml 500 MG/100 ML BAG IVPB SCH (05:13)
[2018-07-24 06:36] LABS: BASO # 0.03 K/mm3 (0.0-2.0); BASO % 0.4 % (0.0-3.0); EOS # 0.2 (0.0-0.7); EOS % 2.1 % (1.5-5.0); GRAN # 3.12 (1.4-6.5); GRAN % 42.9 % (50.0-68.0); LYMPH # 3.5 (1.2-3.4); MEAN CELL VOLUME 83.1 fl (80.0-105.0); MEAN CORPUSCULAR HEMOGLOBIN 25.5 pg (25.0-35.0); MEAN CORPUSCULAR HGB CONC 30.7 g/dl (31.0-37.0); MEAN PLATELET VOLUME 10.9 fl (7.0-11.0); MONO # 0.5 (0.1-0.6); MONO % 6.6 % (1.0-6.0); RBC 3.84 10^6/uL (3.5-6.1); RED CELL DISTRIBUTION WIDTH 17.4 % (11.5-14.5); WHITE BLOOD COUNT 7.3 10^3/uL (4.5-11.0)
[2018-07-24 06:44] LABS: HEMOGLOBIN 9.8 g/dL (12.0-16.0)
--- NOTE | 2018-07-24 06:45 | CP.PCM.PN ---
Objective - Vital Signs/Intake and Output Vital Signs (last 24 hours): Temp Pulse Resp BP Pulse Ox 97.9 F 68 20 122/70 100 07/23/18 18:01 07/23/18 18:01 07/23/18 18:01 07/23/18 18:01 07/23/18 18:01 Intake and Output: 07/23/18 07/24/18 18:59 06:59 Intake Total 1200 Balance 1200 - Medications Medications: Current Medications Famotidine (Pepcid) 40 mg PO HS VERONA Last Admin: 07/23/18 21:24 Dose: 40 mg Sodium Chloride (Sodium Chloride 0.9%) 1,000 mls @ 100 mls/hr IV .Q10H VERONA Last Admin: 07/23/18 17:04 Dose: 100 mls/hr Metronidazole (Flagyl) 500 mg in 100 mls @ 100 mls/hr IVPB Q8 VERONA; Protocol Last Admin: 07/24/18 05:13 Dose: 100 mls/hr Ceftriaxone Sodium (Rocephin 1 Gram Ivpb) 1 gm in 100 mls @ 100 mls/hr IVPB DAILY VERONA; Protocol Last Admin: 07/23/18 17:04 Dose: 100 mls/hr Ketorolac Tromethamine (Toradol) 15 mg IVP Q8H PRN PRN Reason: Pain, moderate (4-7) Last Admin: 07/24/18 06:29 Dose: 15 mg Ondansetron HCl (Zofran Inj) 4 mg IVP Q8H PRN PRN Reason: Nausea/Vomiting - Labs Labs: 07/24/18 06:05 07/23/18 08:25 PT 11.7 SECONDS (9.4-12.5) 07/23/18 08:30 INR 1.04 07/23/18 08:30 APTT 31.3 Seconds (26.9-38.3) 07/23/18 08:30
[2018-07-24 06:58] LABS: ALBUMIN 3.2 g/dL (3.0-4.8); ALT/SGPT 23 U/L (7-56); AST/SGOT 24 U/L (14-36); BLOOD UREA NITROGEN 12 mg/dL (7-21); CALCIUM 8.2 mg/dL (8.4-10.5); GFR NON-AFRICAN AMERICAN > 60
[2018-07-24 08:19] VITALS: BP 113/73; PULSE 61; TEMP 98; O2SAT 97
--- NOTE | 2018-07-24 08:43 | CP.PCM.PN ---
Subjective - Date & Time of Evaluation Date of Evaluation: 07/24/18 Time of Evaluation: 08:05 - Subjective Subjective: Surgery progress note, Dr. Hall Patient seen and examined at bedside. She is resting comfortably in bed and reports no complaints. Denied abdominal pain, fever, chills, N/V/D Objective - Vital Signs/Intake and Output Vital Signs (last 24 hours): Temp Pulse Resp BP Pulse Ox 98 F 61 20 113/73 97 07/24/18 08:18 07/24/18 08:18 07/24/18 08:18 07/24/18 08:18 07/24/18 08:18 Intake and Output: 07/24/18 07/24/18 06:59 18:59 Intake Total 1200 Balance 1200 - Medications Medications: Current Medications Famotidine (Pepcid) 40 mg PO HS VERONA Last Admin: 07/23/18 21:24 Dose: 40 mg Sodium Chloride (Sodium Chloride 0.9%) 1,000 mls @ 100 mls/hr IV .Q10H VERONA Last Admin: 07/23/18 17:04 Dose: 100 mls/hr Metronidazole (Flagyl) 500 mg in 100 mls @ 100 mls/hr IVPB Q8 VERONA; Protocol Last Admin: 07/24/18 05:13 Dose: 100 mls/hr Ceftriaxone Sodium (Rocephin 1 Gram Ivpb) 1 gm in 100 mls @ 100 mls/hr IVPB DAILY VERONA; Protocol Last Admin: 07/23/18 17:04 Dose: 100 mls/hr Ketorolac Tromethamine (Toradol) 15 mg IVP Q8H PRN PRN Reason: Pain, moderate (4-7) Last Admin: 07/24/18 06:29 Dose: 15 mg Ondansetron HCl (Zofran Inj) 4 mg IVP Q8H PRN PRN Reason: Nausea/Vomiting - Labs Labs: 07/24/18 06:05 07/24/18 06:05 PT 11.7 SECONDS (9.4-12.5) 07/23/18 08:30 INR 1.04 07/23/18 08:30 APTT 31.3 Seconds (26.9-38.3) 07/23/18 08:30 - Constitutional Appears: Well, No Acute Distress - Head Exam Head Exam: ATRAUMATIC, NORMAL INSPECTION, NORMOCEPHALIC - Eye Exam Eye Exam: EOMI, Normal appearance, PERRL Pupil Exam: NORMAL ACCOMODATION, PERRL - Neck Exam Neck Exam: Full ROM, Normal Inspection. absent: Lymphadenopathy - Respiratory Exam Respiratory Exam: Clear to Ausculation Bilateral, NORMAL BREATHING PATTERN - GI/Abdominal Exam GI & Abdominal Exam: Soft, Normal Bowel Sounds. absent: Guarding, Tenderness, Organomegaly, Rebound - Back Exam Back Exam: NORMAL INSPECTION - Neurological Exam Neurological Exam: Alert, Awake, Oriented x3 - Psychiatric Exam Psychiatric exam: Normal Affect, Normal Mood - Skin Skin Exam: Dry, Intact, Normal Color, Warm Assessment and Plan - Assessment and Plan (Free Text) Assessment: 47 y/o female with RUQ/epigastric pain x5 days Patient afebrile, hemodynamically stable, normal labs with LFT/ALP/lipase wnl Plan: -UDS positive for benzo, cocaine and cannabinoid, surgery cancelled -outpatient surgery follow up -abd U/S: cholelithiasis, CBD 8.2mm, GBW edema, + maciel's sign -MRCP: choledocholithiasis -pain control, antiemetic prn -advance diet as tolerated -further recs per attending surgeon Dr. Rafael Vinson, DO
[2018-07-24 08:47] LABS: IRON 24 ug/dL (45-180)
[2018-07-24 08:57] LABS: % IRON SATURATION 7 % (20-55); TOTAL IRON BINDING CAPACITY 337 ug/dL (265-497)
[2018-07-24] MEDS: Sodium Chloride 0.9% 1,000 ML IV SCH (09:16)
[2018-07-24] MEDS: cefTRIAXone 1 gm 1 GM/100 ML BAG IVPB SCH (09:16)
[2018-07-24] MEDS ORDERED: Enoxaparin 40 mg Syringe SC SCH (10:00)
--- NOTE | 2018-07-24 11:58 | CP.PCM.DIS ---
<Maris Mart - Last Filed: 07/24/18 21:36> Provider - Provider Date of Admission: 07/23/18 10:56 Attending physician: Konstantin Thomas MD Consults: 07/23/18 10:52 General Surgery Consult Stat Comment: Consulting Provider: Marixa Hall Consulting Physician: Marixa Hall Reason for Consult: biliary colic vs acute on chronic cholecyst 07/23/18 11:13 Physician Consult Routine Comment: Consulting Provider: Jorgito Alamo Consulting Physician: Jorgito Alamo Reason for Consult: pre-op cardiac eval. h/o valvular heart disease Time Spent in preparation of Discharge (in minutes): 45 Diagnosis - Discharge Diagnosis (1) Acute and chronic cholecystitis Status: Acute (2) Common bile duct dilatation Status: Acute Hospital Course - Lab Results Lab Results: Most Recent Lab Values WBC 7.3 10^3/uL (4.5-11.0) 07/24/18 06:05 RBC 3.84 10^6/uL (3.5-6.1) 07/24/18 06:05 Hgb 9.8 g/dL (12.0-16.0) L D 07/24/18 06:05 Hct 31.9 % (36.0-48.0) L 07/24/18 06:05 MCV 83.1 fl (80.0-105.0) 07/24/18 06:05 MCH 25.5 pg (25.0-35.0) 07/24/18 06:05 MCHC 30.7 g/dl (31.0-37.0) L 07/24/18 06:05 RDW 17.4 % (11.5-14.5) H 07/24/18 06:05 Plt Count 259 10^3/uL (120.0-450.0) 07/24/18 06:05 MPV 10.9 fl (7.0-11.0) 07/24/18 06:05 Gran % 42.9 % (50.0-68.0) L 07/24/18 06:05 Lymph % (Auto) 48.0 % (22.0-35.0) H 07/24/18 06:05 [place] % (Auto) 6.6 % (1.0-6.0) H 07/24/18 06:05 Eos % (Auto) 2.1 % (1.5-5.0) 07/24/18 06:05 Baso % (Auto) 0.4 % (0.0-3.0) 07/24/18 06:05 Gran # 3.12 (1.4-6.5) 07/24/18 06:05 Lymph # (Auto) 3.5 (1.2-3.4) H 07/24/18 06:05 [place] # (Auto) 0.5 (0.1-0.6) 07/24/18 06:05 Eos # (Auto) 0.2 (0.0-0.7) 07/24/18 06:05 Baso # (Auto) 0.03 K/mm3 (0.0-2.0) 07/24/18 06:05 Retic Count 0.93 % (0.5-1.5) 07/24/18 08:30 PT 11.7 SECONDS (9.4-12.5) 07/23/18 08:30 INR 1.04 07/23/18 08:30 APTT 31.3 Seconds (26.9-38.3) 07/23/18 08:30 Sodium 139 mmol/L (132-148) 07/24/18 06:05 Potassium 4.4 mmol/L (3.6-5.0) 07/24/18 06:05 Chloride 111 mmol/L (98-107) H 07/24/18 06:05 Carbon Dioxide 26 mmol/L (21-33) 07/24/18 06:05 Anion Gap 6 (10-20) L 07/24/18 06:05 BUN 12 mg/dL (7-21) 07/24/18 06:05 Creatinine 0.8 mg/dl (0.7-1.2) 07/24/18 06:05 Est GFR ( Amer) > 60 07/24/18 06:05 Est GFR (Non-Af Amer) > 60 07/24/18 06:05 Random Glucose 92 mg/dL (70-110) 07/24/18 06:05 Calcium 8.2 mg/dL (8.4-10.5) L 07/24/18 06:05 Magnesium 1.9 mg/dL (1.7-2.2) 07/23/18 08:25 Iron 24 ug/dL (45-180) L 07/24/18 08:30 TIBC 337 ug/dL (265-497) 07/24/18 08:30 % Saturation 7 % (20-55) L 07/24/18 08:30 Total Bilirubin 0.1 mg/dL (0.2-1.3) L 07/24/18 06:05 AST 24 U/L (14-36) 07/24/18 06:05 ALT 23 U/L (7-56) 07/24/18 06:05 Alkaline Phosphatase 53 U/L (38-126) 07/24/18 06:05 Total Protein 6.3 g/dL (5.8-8.3) 07/24/18 06:05 Albumin 3.2 g/dL (3.0-4.8) 07/24/18 06:05 Globulin 3.1 gm/dL 07/24/18 06:05 Albumin/Globulin Ratio 1.0 (1.1-1.8) L 07/24/18 06:05 Lipase 86 U/L (23-300) 07/23/18 08:25 Urine Color Yellow (YELLOW) 07/24/18 00:30 Urine Appearance Clear (CLEAR) 07/24/18 00:30 Urine pH 7.0 (4.7-8.0) 07/24/18 00:30 Ur Specific Esmond 1.010 (1.005-1.035) 07/24/18 00:30 Urine Protein Negative mg/dL (<30 mg/dL) 07/24/18 00:30 Urine Glucose (UA) Negative mg/dL (NEGATIVE) 07/24/18 00:30 Urine Ketones Negative mg/dL (NEGATIVE) 07/24/18 00:30 Urine Blood Negative (NEGATIVE) 07/24/18 00:30 Urine Nitrate Negative (NEGATIVE) 07/24/18 00:30 Urine Bilirubin Negative (NEGATIVE) 07/24/18 00:30 Urine Urobilinogen 0.2 E.U./dL (<1 E.U./dL) 07/24/18 00:30 Ur Leukocyte Esterase Negative Myra/uL (NEGATIVE) 07/24/18 00:30 Urine Opiates Screen Positive (NEGATIVE) H 07/24/18 00:30 Urine Methadone Screen Negative (NEGATIVE) 07/24/18 00:30 Ur Barbiturates Screen Negative (NEGATIVE) 07/24/18 00:30 Ur Phencyclidine Scrn Negative (NEGATIVE) 07/24/18 00:30 Ur Amphetamines Screen Negative (NEGATIVE) 07/24/18 00:30 U Benzodiazepines Scrn Positive (NEGATIVE) H 07/24/18 00:30 U Oth Cocaine Metabols Positive (NEGATIVE) H 07/24/18 00:30 U Cannabinoids Screen Negative (NEGATIVE) 07/24/18 00:30 - Hospital Course Hospital Course: Upon Admission: Pt is a 47 yo F with pmhx of cholelithiasis who presents to the ED for RUQ abd pain for the past 4-5 days. Pt states that she noticed RUQ pain that worsened with food which started 4-5 days ago. She reports that the pain is rated at a 10/10 with occasional radiation to R shoulder. She reports that anytime she eats greasy food the RUQ pain worsens acutely. She reports having similar pain in the past, and was diagnosed with cholelithiasis in 2011. Pt was sent to Dr. Salazar for cardiac clearance and stress test was (-), echo showed EF of 68%. She is currently denies fevers, chills, chest pain, palpitations, yellowing of skin, itching, SOB, cough, vomiting, dysuria or hematuria. Pt does admit to RUQ abd pain and nausea. Hospital Course: Pt was worked up for cholelithiasis and abd U/S was done in ED which showed: Interval progressive common bile duct and intrahepatic bile duct dilatation compatible with interval obstruction.. The prior contracted gallbladder appearance with gallstones is renoted. Also renoted is a sonographic positive Farley sign. An acute on chronic cholecystitis as well as any acute cholangitis needed be considered. Pt also had MRCP which showed contracted gallbladder as read per surgical team. Pt was noted to have no transaminitis, elevated bili or elevated lipase. WBC count was initially elevated at 12.2 but then downtrended and was wnl the next day. The pt remained afebrile during her entire hospitalization. Pt was noted to have a positive UDS for opiates, benzos and cocaine. For this reason per surgical team pts surgery was held so that drugs could get out of her system. Pt was then cleared by surgery for outpt elective surgery and follow up with Dr. Nova. Pts diet was advanced and she was able to tolerate her diet. Pt was informed about the plan for discharge with outpatient follow up with her PMD, Dr. Cobos and with Dr. Nova. Pt expressed understanding and agreement with the plan for discharge and follow up. Pt was also instructed to have a soft low fat diet. Pt was also instructed to discontinue to use of any recreational drugs. All of the pts questions and concerns were addressed prior to d/c. Upon D/C: Pt was given the following instructions to follow up on prior to discharge: - Please follow up with Dr. Nova's office to schedule the surgery to remove your gallbladder. - Phone number to Dr. Nova's office is [phone]. - If you are unable to see Dr. Nova, please ask your primary care doctor, Dr. Cobos for a referral for the surgery. - Please follow up with your primary care doctor, Dr. Yuridia Cobos, within 1 week of discharge. - We have started you on some new medications. Pills take all medications as directed and follow up with your primary care doctor in regards to future management of medications. - You were noted to have low blood counts, please follow this up with your primary care doctor and out patient [employer] doctor for your irregular and heavy periods which may be contributing to the low blood count. - Please have a soft, low fat diet for the next 2-3 days in order to slowly transition yourself back onto regular foods. - Please refrain from taking any recreational drugs. - If you have any new or worsening symptoms please return to the emergency depar tment. Discharge Exam - Head Exam Head Exam: ATRAUMATIC, NORMAL INSPECTION, NORMOCEPHALIC - Eye Exam Eye Exam: EOMI, Normal appearance, PERRL - Respiratory Exam Respiratory Exam: Clear to PA & Lateral, NORMAL BREATHING PATTERN, UNREMARKABLE. absent: Accessory Muscle Use, Decreased Breath Sounds, Rales, Rhonchi, Wheezes, Respiratory Distress - Cardiovascular Exam Cardiovascular Exam: RRR, +S1, +S2. absent: Gallop, Rubs - GI/Abdominal Exam GI & Abdominal Exam: Normal Bowel Sounds, Soft, Tenderness (present the epigastric region, improved from yesterday), Unremarkable. absent: Distended, Firm, Guarding - Extremities Exam Extremities exam: normal capillary refill, normal inspection, pedal pulses present - Back Exam Back exam: NORMAL INSPECTION. absent: CVA tenderness (L), CVA tenderness (R) - Neurological Exam Neurological exam: Alert, Oriented x3 - Psychiatric Exam Psychiatric exam: Normal Affect, Normal Mood - Skin Skin Exam: Dry, Normal Color, Warm Discharge Plan - Discharge Medications Prescriptions: Docusate [Colace] 100 mg PO DAILY PRN 30 Days #30 cap PRN Reason: Constipation RX: Famotidine [Pepcid] 40 mg PO HS 14 Days #14 tab Ferrous Sulfate [Feosol] 324 mg PO TID 30 Days #90 ect - Follow Up Plan Condition: FAIR Disposition: HOME/ ROUTINE Instructions: Gallstones, Cholecystitis (DC) Additional Instructions: - Please follow up with Dr. Nova's office to schedule the surgery to remove your gallbladder. - Phone number to Dr. Nova's office is [phone]. - If you are unable to see Dr. Nova, please ask your primary care doctor, Dr. Cobos for a referral for the surgery. - Please follow up with your primary care doctor, Dr. Yuridia Cobos, within 1 week of discharge. - We have started you on some new medications. Pills take all medications as directed and follow up with your primary care doctor in regards to future management of medications. - You were noted to have low blood counts, please follow this up with your primary care doctor and out patient [employer] doctor for your irregular and heavy periods which may be contributing to the low blood count. - Please have a soft, low fat diet for the next 2-3 days in order to slowly transition yourself back onto regular foods. - Please refrain from taking any recreational drugs. - If you have any new or worsening symptoms please return to the emergency department. Referrals: Kevin Nova MD [Medical Doctor] - Yuridia Cobos MD [Family Provider] - <Konstantin Thomas - Last Filed: 07/25/18 08:09> Provider - Provider Date of Admission: 07/23/18 10:56 Attending physician: Konstantin Thomas MD Consults: 07/23/18 10:52 General Surgery Consult Stat Comment: Consulting Provider: Marixa Hall Consulting Physician: Marixa Hall Reason for Consult: biliary colic vs acute on chronic cholecyst 07/23/18 11:13 Physician Consult Routine Comment: Consulting Provider: Jorgito Alamo Consulting Physician: Jorgito Alamo Reason for Consult: pre-op cardiac eval. h/o valvular heart disease Hospital Course - Lab Results Lab Results: Most Recent Lab Values WBC 7.3 10^3/uL (4.5-11.0) 07/24/18 06:05 RBC 3.84 10^6/uL (3.5-6.1) 07/24/18 06:05 Hgb 9.8 g/dL (12.0-16.0) L D 07/24/18 06:05 Hct 31.9 % (36.0-48.0) L 07/24/18 06:05 MCV 83.1 fl (80.0-105.0) 07/24/18 06:05 MCH 25.5 pg (25.0-35.0) 07/24/18 06:05 MCHC 30.7 g/dl (31.0-37.0) L 07/24/18 06:05 RDW 17.4 % (11.5-14.5) H 07/24/18 06:05 Plt Count 259 10^3/uL (120.0-450.0) 07/24/18 06:05 MPV 10.9 fl (7.0-11.0) 07/24/18 06:05 Gran % 42.9 % (50.0-68.0) L 07/24/18 06:05 Lymph % (Auto) 48.0 % (22.0-35.0) H 07/24/18 06:05 [place] % (Auto) 6.6 % (1.0-6.0) H 07/24/18 06:05 Eos % (Auto) 2.1 % (1.5-5.0) 07/24/18 06:05 Baso % (Auto) 0.4 % (0.0-3.0) 07/24/18 06:05 Gran # 3.12 (1.4-6.5) 07/24/18 06:05 Lymph # (Auto) 3.5 (1.2-3.4) H 07/24/18 06:05 [place] # (Auto) 0.5 (0.1-0.6) 07/24/18 06:05 Eos # (Auto) 0.2 (0.0-0.7) 07/24/18 06:05 Baso # (Auto) 0.03 K/mm3 (0.0-2.0) 07/24/18 06:05 Retic Count 0.93 % (0.5-1.5) 07/24/18 08:30 PT 11.7 SECONDS (9.4-12.5) 07/23/18 08:30 INR 1.04 07/23/18 08:30 APTT 31.3 Seconds (26.9-38.3) 07/23/18 08:30 Sodium 139 mmol/L (132-148) 07/24/18 06:05 Potassium 4.4 mmol/L (3.6-5.0) 07/24/18 06:05 Chloride 111 mmol/L (98-107) H 07/24/18 06:05 Carbon Dioxide 26 mmol/L (21-33) 07/24/18 06:05 Anion Gap 6 (10-20) L 07/24/18 06:05 BUN 12 mg/dL (7-21) 07/24/18 06:05 Creatinine 0.8 mg/dl (0.7-1.2) 07/24/18 06:05 Est GFR ( Amer) > 60 07/24/18 06:05 Est GFR (Non-Af Amer) > 60 07/24/18 06:05 Random Glucose 92 mg/dL (70-110) 07/24/18 06:05 Calcium 8.2 mg/dL (8.4-10.5) L 07/24/18 06:05 Magnesium 1.9 mg/dL (1.7-2.2) 07/23/18 08:25 Iron 24 ug/dL (45-180) L 07/24/18 08:30 TIBC 337 ug/dL (265-497) 07/24/18 08:30 % Saturation 7 % (20-55) L 07/24/18 08:30 Transferrin 286.34 mg/dL (206-381) 07/24/18 08:30 Ferritin 6.8 ng/mL 07/24/18 08:30 Total Bilirubin 0.1 mg/dL (0.2-1.3) L 07/24/18 06:05 AST 24 U/L (14-36) 07/24/18 06:05 ALT 23 U/L (7-56) 07/24/18 06:05 Alkaline Phosphatase 53 U/L (38-126) 07/24/18 06:05 Total Protein 6.3 g/dL (5.8-8.3) 07/24/18 06:05 Albumin 3.2 g/dL (3.0-4.8) 07/24/18 06:05 Globulin 3.1 gm/dL 07/24/18 06:05 Albumin/Globulin Ratio 1.0 (1.1-1.8) L 07/24/18 06:05 Lipase 86 U/L (23-300) 07/23/18 08:25 Urine Color Yellow (YELLOW) 07/24/18 00:30 Urine Appearance Clear (CLEAR) 07/24/18 00:30 Urine pH 7.0 (4.7-8.0) 07/24/18 00:30 Ur Specific Esmond 1.010 (1.005-1.035) 07/24/18 00:30 Urine Protein Negative mg/dL (<30 mg/dL) 07/24/18 00:30 Urine Glucose (UA) Negative mg/dL (NEGATIVE) 07/24/18 00:30 Urine Ketones Negative mg/dL (NEGATIVE) 07/24/18 00:30 Urine Blood Negative (NEGATIVE) 07/24/18 00:30 Urine Nitrate Negative (NEGATIVE) 07/24/18 00:30 Urine Bilirubin Negative (NEGATIVE) 07/24/18 00:30 Urine Urobilinogen 0.2 E.U./dL (<1 E.U./dL) 07/24/18 00:30 Ur Leukocyte Esterase Negative Myra/uL (NEGATIVE) 07/24/18 00:30 Urine Opiates Screen Positive (NEGATIVE) H 07/24/18 00:30 Urine Methadone Screen Negative (NEGATIVE) 07/24/18 00:30 Ur Barbiturates Screen Negative (NEGATIVE) 07/24/18 00:30 Ur Phencyclidine Scrn Negative (NEGATIVE) 07/24/18 00:30 Ur Amphetamines Screen Negative (NEGATIVE) 07/24/18 00:30 U Benzodiazepines Scrn Positive (NEGATIVE) H 07/24/18 00:30 U Oth Cocaine Metabols Positive (NEGATIVE) H 07/24/18 00:30 U Cannabinoids Screen Negative (NEGATIVE) 07/24/18 00:30 Attending/Attestation - Attestation I have personally seen and examined this patient.: Yes I have fully participated in the care of the patient.: Yes I have reviewed all pertinent clinical information, including history, physical exam and plan: Yes Notes (Text): 07/25/18 08:05 Patient was seen and examined with medical administrative technician. 47 yo F with pmhx of cholelithiasis and drug abuse was admitted with epigatric and right upper quadrant pain. USG finding were concerning for cholycystitis but MRCP is negative for cholycystitis, has gall stone,CBD side was normal on MRCP. LFT are normal.Patient was evaluated by surgery and was initially scheduled for cholycystectomy , however due to urine toxicology results which were positive for cocain,,surgery has been cancelled and elective cholycystectomy has been recommended.This was discussed in detail with her.Patient will follow up with surgery as out patient. Patient had abnormal EKG which prompted out patient Echo that showed normal systolic function and stress test was negative for ischemia.Repeat Echo also showed normal systolic function and patient has been cleared by Cardiology for surgery. Management plan was discussed in detail with patient. Education was provided. 07/25/18 08:08
--- NOTE | 2018-07-24 15:35 | PN ---
DATE: 07/24/2018 SUBJECTIVE: The patient denies chest pain. She is experiencing abdominal pain. No nausea or vomiting. PHYSICAL EXAMINATION: VITAL SIGNS: Blood pressure 115/73, heart rate 61, temperature 98, and respirations 20. HEENT: Normocephalic. CHEST: Clear. HEART: S1 and S2 regular. EXTREMITIES: No edema. LABORATORY DATA: Today's hemoglobin and hematocrit are 9.8 and 31.9. White count and platelet count are within normal limits. Today's SMA-7 is within normal limits except for chloride of 111 and anion gap of 6. Urine drug screen is positive for benzodiazepines, cocaine and opiates. Echocardiograph study revealed normal ejection fraction, mild aortic insufficiency and mild tricuspid insufficiency. MRCP was a negative study. ASSESSMENT: 1. Acute cholecystitis with possible cholangitis. 2. Cocaine and opioid abuse. 3. Mild aortic insufficiency. RECOMMENDATIONS: Continue current IV Flagyl and IV Rocephin. Yesterday's EKG revealed normal sinus rhythm with no evidence of ischemia. Jorgito Alamo MD
== END 2018-07-24 14:23 | disposition home or self-care (01) ==
LOC: ED 07:23 → ERH 10:56 → INTOOBSV 10:56 → ERH 12:16 → 3RNO 14:20
PROVIDERS: ADMIT Internal Medicine; ATTEND Internal Medicine
DX: K80.12 Calculus of gallbladder with acute and chronic cholecystitis without obstruction (principal); F11.10 Opioid abuse, uncomplicated; F14.10 Cocaine abuse, uncomplicated; F17.210 Nicotine dependence, cigarettes, uncomplicated; K83.09 Other cholangitis; N92.0 Excessive and frequent menstruation with regular cycle; Z80.0 Family history of malignant neoplasm of digestive organs; Z98.891 History of uterine scar from previous surgery; I08.2 Rheumatic disorders of both aortic and tricuspid valves
CPT/HCPCS: 36415; 74181; 76700; 80053; 81003; 82728; 83690; 83735; 84466; 85025; 85044; 85610; 85730; 93005; 93306; 96361; 96365; 96366; 96367; 96375; 96376; 99284; G0378; G0480; J0696; J1885; J2405; J7030; J7120

== ENCOUNTER 2018-11-22 02:04 | Observation (INO) | payer MEDICAID, OTHER ==
[2018-11-22 02:05] VITALS: BMI 24.4
[2018-11-22] MEDS ORDERED: Sodium Chloride 0.9% 1,000 ML IV STA (02:53)
[2018-11-22] MEDS ORDERED: Morphine 2 mg/ml ISec IVP STA (02:53)
[2018-11-22 03:17] LABS: ALB/GLOB RATIO 1.2 (1.1-1.8); ALBUMIN 4.2 g/dL (3.0-4.8); ALT/SGPT 31 U/L (7-56); AST/SGOT 25 U/L (14-36); BLOOD UREA NITROGEN 11 mg/dL (7-21); CALCIUM 9.3 mg/dL (8.4-10.5); GFR NON-AFRICAN AMERICAN > 60; LIPASE 86 U/L (23-300)
[2018-11-22 03:25] LABS: HEMOGLOBIN 14.2 g/dL (12.0-16.0); MEAN CELL VOLUME 85.3 fl (80.0-105.0); MEAN CORPUSCULAR HEMOGLOBIN 27.4 pg (25.0-35.0); MEAN CORPUSCULAR HGB CONC 32.1 g/dl (31.0-37.0); MEAN PLATELET VOLUME 10.9 fl (7.0-11.0); RBC 5.18 10^6/uL (3.5-6.1); RED CELL DISTRIBUTION WIDTH 17.7 % (11.5-14.5)
--- NOTE | 2018-11-22 03:32 | ED PDOC ---
Arrival/HPI - General Chief Complaint: Abdominal Pain Time Seen by Provider: 11/22/18 02:49 Historian: Patient - History of Present Illness Narrative History of Present Illness (Text): 11/22/18 03:30 A 48 year old female presents to the emergency department for further evaluation of upper abdominal pain radiating to back associated with occasional nausea. The patient states that she has a history of gallstones. She denies fevers, chills, headache, dizziness, chest pain, shortness of breath, dyspnea on exertion, cough, vomiting, diarrhea, back pain, neck pain, urinary/bowel changes, or any other complaint. Time/Duration: Other (Today) Symptom Onset: Sudden Symptom Course: Unchanged Activities at Onset: Rest, Light Context: Home Past Medical History - Provider Review Nursing Documentation Reviewed: Yes - Cardiac Hx Cardiac Disorders: No - Pulmonary Hx Respiratory Disorders: Yes (SMOKES CIGARETTES 1 1/2 PPD .) - Neurological Hx Neurological Disorder: No - HEENT Hx HEENT Disorder: No - Renal Hx Renal Disorder: No - Endocrine/Metabolic Hx Endocrine Disorders: No - Hematological/Oncological Hx Blood Disorders: No - Integumentary Hx Dermatological Disorder: No - Musculoskeletal/Rheumatological Hx Musculoskeletal Disorders: No Hx Falls: Yes - Gastrointestinal Hx Gall Bladder Disease: Yes - Genitourinary/Gynecological Hx Genitourinary Disorders: Yes (C SECTION X 3) - Psychiatric Hx Psychophysiologic Disorder: Yes (HEROIN AND COCAINE USE.) Hx Substance Use: Yes - Surgical History Hx Section: Yes - Anesthesia Hx Anesthesia: Yes Hx Anesthesia Reactions: No Hx Malignant Hyperthermia: No Family/Social History - Physician Review Nursing Documentation Reviewed: Yes Family/Social History: No Known Family HX Smoking Status: Heavy Smoker > 10 Cigarettes Daily Hx Alcohol Use: No (DENIES) Hx Substance Use: Yes Substance used: Snorts Heroin Smokes Cocaine Allergies/Home Meds Allergies/Adverse Reactions: Allergies No Known Allergies Allergy (Verified 11/22/18 02:37) Review of Systems - Physician Review All systems were reviewed & negative as marked: Yes - Review of Systems Constitutional: absent: Fevers Respiratory: absent: SOB, Cough Cardiovascular: absent: Chest Pain, YOUNGER Gastrointestinal: Abdominal Pain, Nausea. absent: Stool Changes, Diarrhea, Vomiting Genitourinary Female: absent: Urine Output Changes Musculoskeletal: Back Pain. absent: Neck Pain Neurological: absent: Headache, Dizziness Physical Exam Vital Signs Reviewed: Yes Vital Signs Temp Pulse Resp BP Pulse Ox 11/22/18 02:40 98.0 F 52 L 18 155/77 H 99 Temperature: Afebrile Blood Pressure: Hypertensive Pulse: Bradycardic Respiratory Rate: Normal Appearance: Positive for: Well-Appearing, Non-Toxic, Comfortable Pain Distress: None Mental Status: Positive for: Alert and Oriented X 3 - Systems Exam Head: Present: Atraumatic, Normocephalic Pupils: Present: PERRL Extroacular Muscles: Present: EOMI Conjunctiva: Present: Normal Mouth: Present: Moist Mucous Membranes Neck: Present: Normal Range of Motion Respiratory/Chest: Present: Clear to Auscultation, Good Air Exchange. No: Respiratory Distress, Accessory Muscle Use Cardiovascular: Present: Regular Rate and Rhythm, Normal S1, S2. No: Murmurs Abdomen: Present: Tenderness (palpable tenderness to upper abdominal area. ), Normal Bowel Sounds. No: Distention, Peritoneal Signs Back: Present: Normal Inspection Upper Extremity: Present: Normal Inspection. No: Cyanosis, Edema Lower Extremity: Present: Normal Inspection. No: Edema Neurological: Present: GCS=15, CN II-XII Intact, Speech Normal Skin: Present: Warm, Dry, Normal Color. No: Rashes Psychiatric: Present: Alert, Oriented x 3, Normal Insight, Normal Concentration Medical Decision Making ED Course and Treatment: 11/22/18 03:31 Impression: A 48 year old female presents to the emergency department with a complaint of upper abdominal pain radiating to back . Plan: -- Abdominal Ultrasound -- Urinalysis -- Morphine, Zofran, and IV Fluids -- Reassess and disposition Prior Visits: Notes and results from previous visits were reviewed. Progress Notes: Ultrasound of the abdomen, complete. Indication: Abdominal pain. Technique: Real-time ultrasound images were obtained. Findings: Unremarkable liver measuring 15.3 cm. Contracted gallbladder containing multiple gallstones without sonographic evidence for acute cholecystitis. Mildly dilated common bile duct measuring 8.4 mm. Unremarkable pancreas. Unremarkable spleen. Unremarkable kidneys. Impression: Cholelithiasis. Electronically signed on November 22, 2018 5:27:37 AM EDT by: Luisito Singh M.D., Certified by ABR, MSK, Neuroradiology 11/22/18 05:39: Case discussed in detail with Dr. Domínguez and medical historian who accept patient to the hospitalists service for Med Surge admission. - Lab Interpretations Lab Results: Total Bilirubin 0.6 mg/dL (0.2-1.3) 11/22/18 02:56 AST 25 U/L (14-36) 11/22/18 02:56 ALT 31 U/L (7-56) 11/22/18 02:56 Alkaline Phosphatase 78 U/L (38-126) 11/22/18 02:56 Total Protein 7.8 g/dL (5.8-8.3) 11/22/18 02:56 Albumin 4.2 g/dL (3.0-4.8) 11/22/18 02:56 Globulin 3.6 gm/dL 11/22/18 02:56 Albumin/Globulin Ratio 1.2 (1.1-1.8) 11/22/18 02:56 Lipase 86 U/L (23-300) 11/22/18 02:56 - RAD Interpretation Radiology Orders: 11/22/18 02:52 ABDOMEN COMPLETE [US] Stat - Medication Orders Current Medication Orders: Sodium Chloride (Sodium Chloride 0.9%) 1,000 mls @ 999 mls/hr IV .Q1H1M STA Stop: 11/22/18 03:53 Last Admin: 11/22/18 03:09 Dose: 999 mls/hr eMAR Start Stop Document 11/22/18 03:09 IT (Rec: 11/22/18 03:09 IT [id number]) Intravenous Solution Start Date 11/22/18 Start Time 03:09 Discontinued Medications Morphine Sulfate (Morphine) 2 mg IVP STAT STA Stop: 11/22/18 02:54 Last Admin: 11/22/18 03:09 Dose: 2 mg MAR Pain Assessment Document 11/22/18 03:09 IT (Rec: 11/22/18 03:09 IT [id number]) Pain Reassessment Is this a pain reassessment? No Sleep Is patient sleeping during reassessment? No Presence of Pain Presence of Pain Yes Pain Scale Used Protocol: PSCALES Pain Scale Used Numeric IVP Administration Document 11/22/18 03:09 IT (Rec: 11/22/18 03:09 IT [id number]) Charges for Administration # of IVP Administrations 1 Ondansetron HCl (Zofran Inj) 4 mg IVP ONCE ONE Stop: 11/22/18 02:54 Last Admin: 11/22/18 03:09 Dose: 4 mg IVP Administration Document 11/22/18 03:09 IT (Rec: 11/22/18 03:09 IT [id number]) Charges for Administration # of IVP Administrations 1 - Scribe Statement The provider has reviewed the documentation as recorded by the Scribe Marzena Petit Provider Scribe Attestation: All medical record entries made by the Scribe were at my direction and personally dictated by me. I have reviewed the chart and agree that the record accurately reflects my personal performance of the history, physical exam, medical decision making, and the department course for this patient. I have also personally directed, reviewed, and agree with the discharge instructions and disposition. Disposition/Present on Arrival - Present on Arrival Any Indicators Present on Arrival: No History of DVT/PE: No History of Uncontrolled Diabetes: No Urinary Catheter: No History of Decub. Ulcer: No History Surgical Site Infection Following: None - Disposition Have Diagnosis and Disposition been Completed?: Yes Diagnosis: Biliary colic, Intractable pain Disposition: HOSPITALIZED Disposition Time: 05:42 Condition: STABLE Forms: [employer] (Irish)
[2018-11-22] MEDS ORDERED: Morphine 4 mg/ml ISec IVP STA (05:37)
--- NOTE | 2018-11-22 05:46 | CP.PCM.HP ---
<Juvenal Lee - Last Filed: 11/22/18 06:35> History of Present Illness - History of Present Illness History of Present Illness: Juvenal Lee, PGY1 H&P for Dr. Domínguez cc: "upper abdominal pain with radiation to back, associated nausea" Patient is a 48 year old female with PMHx Cholelithiasis and Polysubstance Abuse (cocaine, heroin abuse) who presents to the emergency department for further evaluation of right upper abdominal pain radiating to back associated with nausea. The patient has a history of gallstones. She was last admitted on 07/23/18 for gallstones, had MRCP that was negative for cholecystitis and was recommeneded elective cholecystectomy upon discharge. She says she was told by surgeon that cholecystectomy may only be done if she detoxes from heroin. She last used heroin last night x3 bags. She denies fevers, chills, headache, dizziness, chest pain, shortness of breath, dyspnea on exertion, cough, vomiting, diarrhea, back pain, neck pain, urinary/bowel changes. A full 12 point ROS was conducted and unremarkable except as stated above. PMD: Dr. Yuridia Cobos Cards: Dr. Salazar Pharm: [facility] in [place] Pmhx: Cholelithiasis Pshx: x 3 Meds: Feosol 324mg PO TID, Pepcid 40mg PO HS All: NKDA Social: 1/2ppd smoker for greater than 10 years, denies etoh use, has hx of cocaine use; last used heroine abuse x3 bags last night Fam: Mom: Gastric cancer @ 60 Present on Admission - Present on Admission Any Indicators Present on Admission: No Review of Systems - Review of Systems All systems: reviewed and no additional remarkable complaints except (as per HPI) Past Patient History - Past Social History Smoking Status: Heavy Smoker > 10 Cigarettes Daily - CARDIAC Hx Cardiac Disorders: No - PULMONARY Hx Respiratory Disorders: Yes (SMOKES CIGARETTES 1 1/2 PPD .) - NEUROLOGICAL Hx Neurological Disorder: No - HEENT Hx HEENT Problems: No - RENAL Hx Chronic Kidney Disease: No - ENDOCRINE/METABOLIC Hx Endocrine Disorders: No - HEMATOLOGICAL/ONCOLOGICAL Hx Blood Disorders: No - INTEGUMENTARY Hx Dermatological Problems: No - MUSCULOSKELETAL/RHEUMATOLOGICAL Hx Musculoskeletal Disorders: No Hx Falls: Yes - GASTROINTESTINAL Hx Gall Bladder Disease: Yes - GENITOURINARY/GYNECOLOGICAL Hx Genitourinary Disorders: Yes (C SECTION X 3) - PSYCHIATRIC Hx Psychophysiologic Disorder: Yes (HEROIN AND COCAINE USE.) Hx Substance Use: Yes - SURGICAL HISTORY Hx Section: Yes - ANESTHESIA Hx Anesthesia: Yes Hx Anesthesia Reactions: No Hx Malignant Hyperthermia: No Meds Allergies/Adverse Reactions: Allergies Allergy/AdvReac Type Severity Reaction Status Date / Time No Known Allergies Allergy Verified 11/22/18 02:37 Physical Exam - Constitutional Appears: No Acute Distress - Head Exam Head Exam: ATRAUMATIC, NORMAL INSPECTION, NORMOCEPHALIC - Eye Exam Eye Exam: EOMI, Normal appearance - ENT Exam ENT Exam: Mucous Membranes Moist - Respiratory Exam Respiratory Exam: Clear to Auscultation Bilateral. absent: Accessory Muscle Use, Rales, Rhonchi, Wheezes - Cardiovascular Exam Cardiovascular Exam: RRR, +S1, +S2 - GI/Abdominal Exam GI & Abdominal Exam: Normal Bowel Sounds, Soft, Tenderness (RUQ tenderness ). absent: Firm, Guarding, Rebound, Rigid - Extremities Exam Extremities exam: Positive for: normal capillary refill, normal inspection, pedal pulses present - Back Exam Back exam: NORMAL INSPECTION - Neurological Exam Neurological exam: Alert, CN II-XII Intact, Normal Gait, Oriented x3, Reflexes Normal - Psychiatric Exam Psychiatric exam: Normal Affect, Normal Mood - Skin Skin Exam: Dry, Intact, Normal Color, Warm Results - Vital Signs Recent Vital Signs: Last Vital Signs Temp 98.0 F 11/22/18 02:40 Pulse 51 L 11/22/18 05:08 Resp 17 11/22/18 05:08 BP 141/82 11/22/18 05:08 Pulse Ox 98 11/22/18 05:08 - Labs Result Diagrams: 11/22/18 02:56 11/22/18 02:56 Labs: Laboratory Results - last 24 hr 11/22/18 11/22/18 02:56 02:56 WBC 9.0 D RBC 5.18 Hgb 14.2 D Hct 44.2 MCV 85.3 MCH 27.4 MCHC 32.1 RDW 17.7 H Plt Count 259 MPV 10.9 Sodium 139 Potassium 3.9 Chloride 104 Carbon Dioxide 28 Anion Gap 11 BUN 11 Creatinine 0.8 Est GFR ( Amer) > 60 Est GFR (Non-Af Amer) > 60 Random Glucose 98 Calcium 9.3 Total Bilirubin 0.6 AST 25 ALT 31 Alkaline Phosphatase 78 Total Protein 7.8 Albumin 4.2 Globulin 3.6 Albumin/Globulin Ratio 1.2 Lipase 86 Assessment & Plan - Assessment and Plan (Free Text) Assessment: Patient is a 48 year old female with PMHx Cholelithiasis and Polysubstance Abuse (cocaine, heroin abuse) who presents to the emergency department for further evaluation of right upper abdominal pain radiating to back associated with nausea. Plan: Cholelithiasis - Abdominal US pending - No significant abnormalities on labs; no fevers - Surgery consulted - NPO - IVF NS @ 100cc/hr - morphine 1mg IVP q6 prn for pain control - zofran prn for nausea Polysubstance Abuse - UDS ordered Anemia - resume home med feosol GERD - resume pepcid home med ppx: scd Diet: NPO Dispo: Monitor patient on the floor. Case was discussed and reviewed with Attending Physician, Dr. Domínguez <Atilio Domínguez - Last Filed: 11/22/18 13:41> Results - Vital Signs Recent Vital Signs: Last Vital Signs Temp 98.2 F 11/22/18 06:49 Pulse 58 L 11/22/18 06:49 Resp 16 11/22/18 08:45 BP 138/71 11/22/18 06:49 Pulse Ox 99 11/22/18 06:49 - Labs Result Diagrams: 11/22/18 02:56 11/22/18 02:56 Labs: Laboratory Results - last 24 hr 11/22/18 11/22/18 02:56 02:56 WBC 9.0 D RBC 5.18 Hgb 14.2 D Hct 44.2 MCV 85.3 MCH 27.4 MCHC 32.1 RDW 17.7 H Plt Count 259 MPV 10.9 Sodium 139 Potassium 3.9 Chloride 104 Carbon Dioxide 28 Anion Gap 11 BUN 11 Creatinine 0.8 Est GFR ( Amer) > 60 Est GFR (Non-Af Amer) > 60 Random Glucose 98 Calcium 9.3 Total Bilirubin 0.6 AST 25 ALT 31 Alkaline Phosphatase 78 Total Protein 7.8 Albumin 4.2 Globulin 3.6 Albumin/Globulin Ratio 1.2 Lipase 86 Attending/Attestation - Attestation I have personally seen and examined this patient.: Yes I have fully participated in the care of the patient.: Yes I have reviewed all pertinent clinical information: Yes Notes (Text): 11/22/18 13:39 Patient was seen when she was in cubicle #8 ER. Agree with history, physical examination, assessment and plan. Patient has right upper and epigastric pain, has past medical history of seizure in section x3, cholelithiasis, fall, cocaine and heroin abuse, history of gastric cancer.
[2018-11-22] MEDS: Sodium Chloride 0.9% 1,000 ML IV SCH ×2 (06:39→18:03)
--- NOTE | 2018-11-22 06:47 | CP.PCM.CON ---
<FernandochaunceyRoger connelly Ralph - Last Filed: 11/22/18 06:42> History of Present Illness - History of Present Illness History of Present Illness: SURGERY CONSULT NOTE FOR DR. BAUTISTA 48F presents to the ED for abdominal pain. Patient states pain is lockaed in the epigastric region. She has had a similar episode of this in July and was diagnosis with cholecystitis, she was schedule for operation but tested positive for cocaine so it was cancelled and she never followed up. She states now the pain is back and she denies nausea, vomiting, fevers or chills. Patient admits to recently using illicit drugs again, both cocaine and heroin last night. PMH: drug abuse PSH: Social: admits to tobacco use, cocaine and heroin use, denies alcohol use Allergies: NKDA Past Patient History - Past Social History Smoking Status: Heavy Smoker > 10 Cigarettes Daily - CARDIAC Hx Cardiac Disorders: No - PULMONARY Hx Respiratory Disorders: Yes (SMOKES CIGARETTES 1 1/2 PPD .) - NEUROLOGICAL Hx Neurological Disorder: No - HEENT Hx HEENT Problems: No - RENAL Hx Chronic Kidney Disease: No - ENDOCRINE/METABOLIC Hx Endocrine Disorders: No - HEMATOLOGICAL/ONCOLOGICAL Hx Blood Disorders: No - INTEGUMENTARY Hx Dermatological Problems: No - MUSCULOSKELETAL/RHEUMATOLOGICAL Hx Musculoskeletal Disorders: No Hx Falls: Yes - GASTROINTESTINAL Hx Gall Bladder Disease: Yes - GENITOURINARY/GYNECOLOGICAL Hx Genitourinary Disorders: Yes (C SECTION X 3) - PSYCHIATRIC Hx Psychophysiologic Disorder: Yes (HEROIN AND COCAINE USE.) Hx Substance Use: Yes - SURGICAL HISTORY Hx Section: Yes - ANESTHESIA Hx Anesthesia: Yes Hx Anesthesia Reactions: No Hx Malignant Hyperthermia: No Meds Allergies/Adverse Reactions: Allergies Allergy/AdvReac Type Severity Reaction Status Date / Time No Known Allergies Allergy Verified 11/22/18 02:37 - Medications Medications: Current Medications Famotidine (Pepcid) 40 mg PO HS VERONA Ferrous Sulfate (Feosol) 324 mg PO TID VERONA Sodium Chloride (Sodium Chloride 0.9%) 1,000 mls @ 100 mls/hr IV .Q10H VERONA Last Admin: 11/22/18 06:39 Dose: 100 mls/hr Morphine Sulfate (Morphine) 1 mg IVP Q6H PRN PRN Reason: Pain, severe (8-10) Ondansetron HCl (Zofran Inj) 4 mg IVP Q4H PRN PRN Reason: Nausea/Vomiting Physical Exam - Constitutional Appears: Non-toxic, No Acute Distress Additional comments: tired lethargic - ENT Exam ENT Exam: Mucous Membranes Dry - Respiratory Exam Respiratory Exam: Clear to Auscultation Bilateral, NORMAL BREATHING PATTERN - Cardiovascular Exam Cardiovascular Exam: +S1, +S2 - GI/Abdominal Exam GI & Abdominal Exam: Soft, Tenderness (diffuse). absent: Distended, Firm, Guarding, Rebound, Rigid - Extremities Exam Extremities exam: Negative for: pedal edema, tenderness - Neurological Exam Neurological exam: Alert, Oriented x3 - Psychiatric Exam Additional comments: lethargic, under influence - Skin Skin Exam: Dry, Intact, Normal Color, Warm Results - Vital Signs Recent Vital Signs: Last Vital Signs Temp 98.0 F 11/22/18 02:40 Pulse 51 L 11/22/18 05:08 Resp 17 11/22/18 05:08 BP 141/82 11/22/18 05:08 Pulse Ox 98 11/22/18 05:08 - Labs Result Diagrams: 11/22/18 02:56 11/22/18 02:56 Labs: Laboratory Results - last 24 hr 11/22/18 11/22/18 02:56 02:56 WBC 9.0 D RBC 5.18 Hgb 14.2 D Hct 44.2 MCV 85.3 MCH 27.4 MCHC 32.1 RDW 17.7 H Plt Count 259 MPV 10.9 Sodium 139 Potassium 3.9 Chloride 104 Carbon Dioxide 28 Anion Gap 11 BUN 11 Creatinine 0.8 Est GFR ( Amer) > 60 Est GFR (Non-Af Amer) > 60 Random Glucose 98 Calcium 9.3 Total Bilirubin 0.6 AST 25 ALT 31 Alkaline Phosphatase 78 Total Protein 7.8 Albumin 4.2 Globulin 3.6 Albumin/Globulin Ratio 1.2 Lipase 86 Assessment & Plan - Assessment and Plan (Free Text) Assessment: 48F presents with abdominal pain likely 2/2 gallbladder region US: cholelithiasis Plan: - NPO - IVF - Pain control - anti-emetics - will need cholecystectomy - Illicit drugs last night likely will be on hold. Further recs for Lily Holcomb, PGY3 <Odin Bautista - Last Filed: 11/26/18 10:43> Results - Vital Signs Recent Vital Signs: Last Vital Signs Temp 98.0 F 11/23/18 06:00 Pulse 60 11/23/18 06:00 Resp 20 11/23/18 06:00 BP 144/75 11/23/18 06:00 Pulse Ox 97 11/23/18 06:00 - Labs Result Diagrams: 11/23/18 07:00 11/23/18 07:00 Assessment & Plan - Assessment and Plan (Free Text) Plan: Patient was seen, evaluated and examined by me at the bedside. I agree with assessment and plan as stated in the resident's note.
[2018-11-22] MEDS ORDERED: Pneumococcal 23-Valent Vaccine IM ONE (07:32)
--- NOTE | 2018-11-22 11:17 | RAD ---
Date of service: 11/22/2018 HISTORY: clearance for possible surgery COMPARISON: No prior. TECHNIQUE: 1 view obtained. FINDINGS: LUNGS: No active pulmonary disease. PLEURA: No significant pleural effusion identified, no pneumothorax apparent. CARDIOVASCULAR: No aortic atherosclerotic calcification present. Normal cardiac size. No pulmonary vascular congestion. OSSEOUS STRUCTURES: No significant abnormalities. VISUALIZED UPPER ABDOMEN: Normal. OTHER FINDINGS: None. IMPRESSION: No active disease.
--- NOTE | 2018-11-22 12:59 | US ---
Date of service: 11/22/2018 HISTORY: abdominal pain COMPARISON: None. TECHNIQUE: Sonographic evaluation of the abdomen. FINDINGS: LIVER: Measures 15.3 cm. Normal echogenicity of the liver parenchyma. No mass. No intrahepatic bile duct dilatation. Main portal vein and hepatic veins demonstrate normal directional flow. GALLBLADDER: Contracted around multiple gallstones. COMMON BILE DUCT: Measures 8 mm. No stones. No dilatation. PANCREAS: Unremarkable as visualized. No mass. No ductal dilatation. RIGHT KIDNEY: Measures 10.6 x 5.7 x 5.3cm. Normal echogenicity. No calculus, mass, or hydronephrosis. LEFT KIDNEY: Measures 10.0 x 4.5 x 4.6cm. Normal echogenicity. No calculus, mass, or hydronephrosis. SPLEEN: Normal in size and contour. No mass. AORTA: No aneurysmal dilatation. IVC: Unremarkable. OTHER FINDINGS: None. IMPRESSION: Cholelithiasis without sonographic evidence for acute cholecystitis.
[2018-11-22 14:21] LABS: BARBITURATES, UR NEGATIVE (NEGATIVE); BENZODIAZEPINES, UR NEGATIVE (NEGATIVE); OPIATES, UR POSITIVE (NEGATIVE); PHENCYCLIDINE, UR NEGATIVE (NEGATIVE)
--- NOTE | 2018-11-22 14:34 | CP.PCM.PCO ---
Physician Communication Note - Physician Communication Note Physician Communication Note: Cholelithiasis - not cholecystitis - outpatient elective cholecystectomy
[2018-11-22 18:00] VITALS: RESP 20
[2018-11-22] MEDS: Morphine 2 mg/ml ISec IVP PRN (18:14)
[2018-11-23] MEDS: Morphine 2 mg/ml ISec IVP PRN (02:08)
[2018-11-23] MEDS: Sodium Chloride 0.9% 1,000 ML IV SCH (04:30)
[2018-11-23 07:14] VITALS: BP 144/75; PULSE 60; TEMP 98; O2SAT 97
[2018-11-23 08:02] LABS: HEMOGLOBIN 13.4 g/dL (12.0-16.0); MEAN CELL VOLUME 84.5 fl (80.0-105.0); MEAN CORPUSCULAR HEMOGLOBIN 27.3 pg (25.0-35.0); MEAN CORPUSCULAR HGB CONC 32.4 g/dl (31.0-37.0); MEAN PLATELET VOLUME 11.4 fl (7.0-11.0); RBC 4.9 10^6/uL (3.5-6.1); RED CELL DISTRIBUTION WIDTH 17.8 % (11.5-14.5); WHITE BLOOD COUNT 7.6 10^3/uL (4.5-11.0)
[2018-11-23 08:17] LABS: ALB/GLOB RATIO 1.1 (1.1-1.8); ALBUMIN 3.8 g/dL (3.0-4.8); ALT/SGPT 22 U/L (7-56); AST/SGOT 24 U/L (14-36); BLOOD UREA NITROGEN 8 mg/dL (7-21); CALCIUM 9.1 mg/dL (8.4-10.5); GFR NON-AFRICAN AMERICAN > 60
--- NOTE | 2018-11-23 10:49 | CARD ---
APPROVED REPORT Date of service: 11/22/2018 EKG Measurement Heart [id number] <Conclusion> Sinus bradycardia with sinus arrhythmia Otherwise normal ECG
--- NOTE | 2018-11-23 14:22 | CP.PCM.DIS ---
<OmariursulaJimmy - Last Filed: 11/23/18 14:14> Provider - Provider Date of Admission: 11/22/18 05:39 Attending physician: Moy Chan MD Consults: 11/22/18 06:14 Physician Consult Routine Comment: Consulting Provider: Odin Bautista Consulting Physician: Odin Bautista Reason for Consult: gallstones Time Spent in preparation of Discharge (in minutes): 45 Hospital Course - Lab Results Lab Results: Most Recent Lab Values WBC 7.6 10^3/uL (4.5-11.0) 11/23/18 07:00 RBC 4.90 10^6/uL (3.5-6.1) 11/23/18 07:00 Hgb 13.4 g/dL (12.0-16.0) 11/23/18 07:00 Hct 41.4 % (36.0-48.0) 11/23/18 07:00 MCV 84.5 fl (80.0-105.0) 11/23/18 07:00 MCH 27.3 pg (25.0-35.0) 11/23/18 07:00 MCHC 32.4 g/dl (31.0-37.0) 11/23/18 07:00 RDW 17.8 % (11.5-14.5) H 11/23/18 07:00 Plt Count 217 10^3/uL (120.0-450.0) 11/23/18 07:00 MPV 11.4 fl (7.0-11.0) H 11/23/18 07:00 Sodium 141 mmol/L (132-148) 11/23/18 07:00 Potassium 3.7 mmol/L (3.6-5.0) 11/23/18 07:00 Chloride 112 mmol/L (98-107) H 11/23/18 07:00 Carbon Dioxide 20 mmol/L (21-33) L 11/23/18 07:00 Anion Gap 13 (10-20) 11/23/18 07:00 BUN 8 mg/dL (7-21) 11/23/18 07:00 Creatinine 0.7 mg/dl (0.7-1.2) 11/23/18 07:00 Est GFR ( Amer) > 60 11/23/18 07:00 Est GFR (Non-Af Amer) > 60 11/23/18 07:00 Random Glucose 78 mg/dL (70-110) 11/23/18 07:00 Calcium 9.1 mg/dL (8.4-10.5) 11/23/18 07:00 Total Bilirubin 0.7 mg/dL (0.2-1.3) 11/23/18 07:00 AST 24 U/L (14-36) 11/23/18 07:00 ALT 22 U/L (7-56) 11/23/18 07:00 Alkaline Phosphatase 78 U/L (38-126) 11/23/18 07:00 Total Protein 7.2 g/dL (5.8-8.3) 11/23/18 07:00 Albumin 3.8 g/dL (3.0-4.8) 11/23/18 07:00 Globulin 3.4 gm/dL 11/23/18 07:00 Albumin/Globulin Ratio 1.1 (1.1-1.8) 11/23/18 07:00 Lipase 86 U/L (23-300) 11/22/18 02:56 Urine Opiates Screen Positive (NEGATIVE) H 11/22/18 13:45 Urine Methadone Screen Negative (NEGATIVE) 11/22/18 13:45 Ur Barbiturates Screen Negative (NEGATIVE) 11/22/18 13:45 Ur Phencyclidine Scrn Negative (NEGATIVE) 11/22/18 13:45 Ur Amphetamines Screen Negative (NEGATIVE) 11/22/18 13:45 U Benzodiazepines Scrn Negative (NEGATIVE) 11/22/18 13:45 U Oth Cocaine Metabols Positive (NEGATIVE) H 11/22/18 13:45 U Cannabinoids Screen Negative (NEGATIVE) 11/22/18 13:45 - Hospital Course Hospital Course: Jimmy Boykin, PGY-1, Internal Medicine Discharge Summary for Dr. Chan 48 year old female with past medical history of cholelithiasis and polysubstance abuse with cocaine and heroin presented for evaluation of right upper abdominal pain radiating to back associated with nausea. Patient was last seen in 07/23/18 for cholelithiasis without cholecystitis but was told by surgeon that cholecystectomy could only be done if she detoxed from heroin. Patient last used heroin the night before admission. Upon admission, abdominal ultrasound showed cholelithiasis without cholecystitis. EKG showed sinus bradycardia with sinus arrhythmia. Chest X ray showed no active disease. Patient was started on morphine 1 mg Q6PRN for pain control, made NPO, started on NS at 100cc/hr and given zofran PRN for nausea. LFTs were within normal limits. UDS was positive for opiates and cocaine. Patient was counseled regarding cocaine and heroin cessation extensively. Surgery reported due to polysubstance abuse, surgery would be deferred until after detoxing. As a result, patient was progressed to low fat diet. Patient was to be watched for improvement in symptoms, but patient eloped this morning after taking IV needle out. This is a brief summary of the events that occurred during this hospital visit. For more information, please refer to hospital documentation. Discharge Diagnoses Cholelithiasis Cocaine abuse Heroin abuse - Date & Time of H&P Date of H&P: 11/22/18 Time of H&P: 05:41 Discharge Exam - Head Exam Head Exam: ATRAUMATIC, NORMAL INSPECTION, NORMOCEPHALIC Additional comments: unable to evaluate due to elopement. please refer to note from 11/22 Discharge Plan - Follow Up Plan Condition: STABLE Disposition: AGAINST MEDICAL ADVICE <Moy Chan - Last Filed: 11/23/18 14:27> Provider - Provider Date of Admission: 11/22/18 05:39 Attending physician: Moy Chan MD Consults: 11/22/18 06:14 Physician Consult Routine Comment: Consulting Provider: Odin Bautista Consulting Physician: Odin Bautista Reason for Consult: gallstones Hospital Course - Lab Results Lab Results: Most Recent Lab Values WBC 7.6 10^3/uL (4.5-11.0) 11/23/18 07:00 RBC 4.90 10^6/uL (3.5-6.1) 11/23/18 07:00 Hgb 13.4 g/dL (12.0-16.0) 11/23/18 07:00 Hct 41.4 % (36.0-48.0) 11/23/18 07:00 MCV 84.5 fl (80.0-105.0) 11/23/18 07:00 MCH 27.3 pg (25.0-35.0) 11/23/18 07:00 MCHC 32.4 g/dl (31.0-37.0) 11/23/18 07:00 RDW 17.8 % (11.5-14.5) H 11/23/18 07:00 Plt Count 217 10^3/uL (120.0-450.0) 11/23/18 07:00 MPV 11.4 fl (7.0-11.0) H 11/23/18 07:00 Sodium 141 mmol/L (132-148) 11/23/18 07:00 Potassium 3.7 mmol/L (3.6-5.0) 11/23/18 07:00 Chloride 112 mmol/L (98-107) H 11/23/18 07:00 Carbon Dioxide 20 mmol/L (21-33) L 11/23/18 07:00 Anion Gap 13 (10-20) 11/23/18 07:00 BUN 8 mg/dL (7-21) 11/23/18 07:00 Creatinine 0.7 mg/dl (0.7-1.2) 11/23/18 07:00 Est GFR ( Amer) > 60 11/23/18 07:00 Est GFR (Non-Af Amer) > 60 11/23/18 07:00 Random Glucose 78 mg/dL (70-110) 11/23/18 07:00 Calcium 9.1 mg/dL (8.4-10.5) 11/23/18 07:00 Total Bilirubin 0.7 mg/dL (0.2-1.3) 11/23/18 07:00 AST 24 U/L (14-36) 11/23/18 07:00 ALT 22 U/L (7-56) 11/23/18 07:00 Alkaline Phosphatase 78 U/L (38-126) 11/23/18 07:00 Total Protein 7.2 g/dL (5.8-8.3) 11/23/18 07:00 Albumin 3.8 g/dL (3.0-4.8) 11/23/18 07:00 Globulin 3.4 gm/dL 11/23/18 07:00 Albumin/Globulin Ratio 1.1 (1.1-1.8) 11/23/18 07:00 Lipase 86 U/L (23-300) 11/22/18 02:56 Urine Opiates Screen Positive (NEGATIVE) H 11/22/18 13:45 Urine Methadone Screen Negative (NEGATIVE) 11/22/18 13:45 Ur Barbiturates Screen Negative (NEGATIVE) 11/22/18 13:45 Ur Phencyclidine Scrn Negative (NEGATIVE) 11/22/18 13:45 Ur Amphetamines Screen Negative (NEGATIVE) 11/22/18 13:45 U Benzodiazepines Scrn Negative (NEGATIVE) 11/22/18 13:45 U Oth Cocaine Metabols Positive (NEGATIVE) H 11/22/18 13:45 U Cannabinoids Screen Negative (NEGATIVE) 11/22/18 13:45 Attending/Attestation - Attestation I have reviewed all pertinent clinical information, including history, physical exam and plan: Yes Notes (Text): 11/23/18 14:27 Patient eloped early this morning prior to AM rounds.
== END 2018-11-23 07:15 | disposition left against medical advice (07) ==
LOC: ED 02:04 → ERH 05:39 → 3RNO 07:04 → ERH 07:07
PROVIDERS: ADMIT Internal Medicine; ATTEND Internal Medicine
DX: K80.20 Calculus of gallbladder without cholecystitis without obstruction (principal); F11.10 Opioid abuse, uncomplicated; F14.10 Cocaine abuse, uncomplicated; D64.9 Anemia, unspecified; K21.9 Gastro-esophageal reflux disease without esophagitis; F17.210 Nicotine dependence, cigarettes, uncomplicated; Z80.0 Family history of malignant neoplasm of digestive organs
CPT/HCPCS: 36415; 71045; 76700; 80053; 80324; 80345; 80346; 80349; 80353; 80358; 80361; 81025; 83690; 83992; 85027; 93005; 96374; 96375; 96376; 99284; G0378; J2270; J2405; J7030